=== PATIENT | male | born 1985 | race Caucasian/White ===

== ENCOUNTER → 2017-01-24 | Outpatient (CLI) | payer OTHER ==
[~2017-01-24] MED LIST: ATR25 PO; INSPMPRG; SERT-234 PO
[2017-01-24 16:29] LABS: ALB/GLOB RATIO 1.2 (0.9-2); ALKALINE PHOSPHATASE 89 U/L (45-117); ALT/SGPT 22 U/L (12-78); AST/SGOT 12 U/L (15-37); BLOOD UREA NITROGEN 18 mg/dl (7-18); BUN/CREATININE RATIO 14.1 (10-20); CALCIUM 8.6 mg/dl (8.5-10.1); CARBON DIOXIDE 30 mmol/L (21-32); CHLORIDE 102 mmol/L (98-107); CHOLESTEROL 116 mg/dl (0-200); CHOLESTEROL/HDL RATIO 1.8; CREATININE 1.28 mg/dl (0.60-1.40); GLUCOSE 368 mg/dl (70-99); HDL CHOLESTEROL 66 mg/dl; LDL CHOLESTEROL CALCULATED 5 mg/dl; POTASSIUM 4.2 mmol/L (3.5-5.1); SODIUM 139 mmol/L (136-145); THYROID STIMULATING HORMONE 0.301 uIu/ml (0.300-4.500); TRIGLYCERIDES 223 mg/dl (0-150); VERY LOW DENSITY LIPOPROT CALC 45 mg/dl
[2017-01-24 16:40] LABS: BETA-HYDROXYBUTYRATE 1.19 mg/dL (0.2-2.81)
[2017-01-24 17:08] LABS: RATIO 17.4 mcg/mg (0-30.0)
[2017-01-25 06:15] LABS: ESTIMATED AVERAGE GLUCOSE 192 mg/dl; HA1C FLAG Normal (Normal)
== END | disposition home or self-care (01) ==
LOC: C.LAB1850 14:44
PROVIDERS: ATTEND Nurse Practitioner Family
DX: E10.65 Type 1 diabetes mellitus with hyperglycemia (principal)

== ENCOUNTER → 2017-04-11 | Outpatient (CLI) | payer OTHER ==
--- NOTE | 2017-04-11 09:50 | DIAGNOSTIC IMAGING REPORT ---
CHEST 2 VIEWS ROUTINE CLINICAL HISTORY: COUGH COMPARISON STUDY: Chest radiograph June 15, 2011. FINDINGS: Lung volumes are normal. No pneumothorax or pleural effusion is present. There is no consolidation to suggest pneumonia. Pulmonary vascularity is normal. Cardiomediastinal silhouette is normal. IMPRESSION: No acute cardiopulmonary findings. Electronically signed by: Adrian Cheatham M.D. 04/11/2017 9:49 AM Dictated Date/Time: 04/11/2017 9:47 AM
== END | disposition home or self-care (01) ==
LOC: C.RADBC 09:38
PROVIDERS: ATTEND Nurse Practitioner Adult Health
DX: R05 Cough (principal)

== ENCOUNTER 2017-10-16 17:55 | Emergency (ER) | payer OTHER ==
[~2017-10-16] VITALS: Ht 170.2 cm; Wt 70.0 kg
[2017-10-16 17:57] VITALS: TEMP 36.6; Ht 170.2 cm; Wt 70.0 kg
[2017-10-16] MEDS ORDERED: ONDANSETRON INJ 2 MG/ML 2 ML VIAL IV STA (18:04)
[2017-10-16] MEDS ORDERED: SODIUM CHLORIDE 0.9% 1000ML 1,000 ML IV STA (18:04)
[2017-10-16] MEDS ORDERED: SODIUM CHLORIDE 0.9% 1000ML 2,000 ML IV STA (18:04)
--- NOTE | 2017-10-16 18:21 | EMERGENCY ROOM VISIT NOTE ---
History Report prepared by Pato: Humza Quintana Under the Supervision of: Dr. Vanita Thakkar M.D. First contact with patient: 18:03 Chief Complaint: OTHER COMPLAINT Stated Complaint: DIABETIC SHOCK History of Present Illness The patient is a 31 year old male who presents to the Emergency Room with complaints of high blood sugar. 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 He states he uses an insulin pump that he filled this morning. He states that he felt nausea this morning that is now resolved. He reports that around noon, he began urinating once per hour. He states that he also felt tired but otherwise mostly fine until 5 PM, when he began feeling like his blood sugar was high, experiencing pain and shortness of breath. He called his at this time. He states that he left his pump at work , and then when he checked his blood sugar, it was over 600. The patient states that he takes no medications other than insulin. Today he ate a protein bar, a piece of toast, a red bull, and coffee without sugar. He also notes that he drank 2 hard ciders last night. The patient states that this is the first time he has been in the hospital for his diabetes. Source of History: patient Onset: today, worsening at 5 PM Position: other (global) Symptom Intensity: blood sugar over 600 Timing: worsening (since 5 PM) Associated Symptoms: + SOB, + nausea (now resolved), + urinary symptoms ( frequency (once per hour)), + fatigue Review of Systems See HPI for pertinent positives & negatives. A total of 10 systems reviewed and were otherwise negative. Past Medical & Surgical Medical Problems: (1) Diabetes Family History Heart disease Hypertension Social History Smoking Status: Former Smoker Alcohol Use: occasionally Marital Status: Housing Status: lives with family Occupation Status: employed Current/Historical Medications Scheduled Insulin Aspart (novoLOG INSULIN PUMP ), 1 EA N/A UD Allergies Coded Allergies: Latex (Verified Allergy, Mild, RASH, 10/16/17) Physical Exam Vital Signs Date Time Temp Pulse Resp B/P (MAP) Pulse Ox O2 Delivery O2 Flow Rate FiO2 10/16/17 21:48 92 18 125/85 98 Room Air 10/16/17 19:06 93 20 134/77 97 Room Air 10/16/17 18:16 108 10/16/17 17:57 36.6 124 24 157/95 100 Room Air Physical Exam Vital signs reviewed. General: Hyperventilating and very anxious-appearing male. HEENT: No scleral icterus, PERRLA, neck supple. Atraumatic. Dry mucous membranes. Cardiovascular: Slightly tachycardic rate and regular rhythm, no extra sounds. Pulmonary: Clear to auscultation bilaterally, normal work of breathing. Abdomen: Soft, nontender, nondistended, positive bowel sounds. Musculoskeletal: Atraumatic, no peripheral edema. Neurologic: Patient awake alert and oriented x 3 Skin: Warm, dry, no rash Medical Decision & Procedures Laboratory Results 10/16/17 18:05 Red Blood Count 5.10, Mean Corpuscular Volume 83.5, Mean Corpuscular Hemoglobin 30.8, Mean Corpuscular Hemoglobin Concent 36.9, Mean Platelet Volume 10.4, Neutrophils (%) (Auto) 70.2, Lymphocytes (%) (Auto) 18.4, Monocytes (%) (Auto) 9.2, Eosinophils (%) (Auto) 1.1, Basophils (%) (Auto) 0.7, Neutrophils # (Auto) 7.84, Lymphocytes # (Auto) 2.06, Monocytes # (Auto) 1.03, Eosinophils # (Auto) 0.12, Basophils # (Auto) 0.08 10/16/17 18:05 Test 10/16/17 18:05 10/16/17 18:15 10/16/17 18:47 10/16/17 19:04 White Blood Count 11.17 K/uL (4.8-10.8) Red Blood Count 5.10 M/uL (4.7-6.1) Hemoglobin 15.7 g/dL (14.0-18.0) Hematocrit 42.6 % (42-52) Mean Corpuscular Volume 83.5 fL (80-100) Mean Corpuscular Hemoglobin 30.8 pg (25-34) Mean Corpuscular Hemoglobin Concent 36.9 g/dl (32-36) Platelet Count 261 K/uL (130-400) Mean Platelet Volume 10.4 fL (7.4-10.4) Neutrophils (%) (Auto) 70.2 % Lymphocytes (%) (Auto) 18.4 % Monocytes (%) (Auto) 9.2 % Eosinophils (%) (Auto) 1.1 % Basophils (%) (Auto) 0.7 % Neutrophils # (Auto) 7.84 K/uL (1.4-6.5) Lymphocytes # (Auto) 2.06 K/uL (1.2-3.4) Monocytes # (Auto) 1.03 K/uL (0.11-0.59) Eosinophils # (Auto) 0.12 K/uL (0-0.5) Basophils # (Auto) 0.08 K/uL (0-0.2) RDW Standard Deviation 37.0 fL (36.4-46.3) RDW Coefficient of Variation 12.2 % (11.5-14.5) Immature Granulocyte % (Auto) 0.4 % Immature Granulocyte # (Auto) 0.04 K/uL (0.00-0.02) Est Creatinine Clear Calc Drug Dose 55.1 ml/min Estimated GFR () 55.8 Estimated GFR (Non- 48.1 BUN/Creatinine Ratio 13.2 (10-20) Calcium Level 10.0 mg/dl (8.5-10.1) Magnesium Level 2.0 mg/dl (1.8-2.4) Total Bilirubin 1.8 mg/dl (0.2-1) Direct Bilirubin 0.4 mg/dl (0-0.2) Aspartate Amino Transf (AST/SGOT) 24 U/L (15-37) Alanine Aminotransferase (ALT/SGPT) 34 U/L (12-78) Alkaline Phosphatase 180 U/L (45-117) Total Protein 8.1 gm/dl (6.4-8.2) Albumin 4.9 gm/dl (3.4-5.0) Lipase 108 U/L (73-393) Beta-Hydroxybutyric Acid 21.85 mg/dL (0.2-2.81) Salicylates Level < 1.7 mg/dl (2.8-20) Acetaminophen Level < 2 ug/ml (10-30) Bedside Hemoglobin 16.0 g/dl (14.0-18.0) Bedside Hematocrit 47 % (42-52) Bedside Sodium 127 mEq/L (135-144) Bedside Potassium 4.1 mEq/L (3.3-5.0) Bedside Chloride 91 mEq/L (101-112) Bedside Total CO2 17 mEq/l (24-31) Anion Gap 24.0 mmol/L (16-25) Bedside Blood Urea Nitrogen 24 mg/dl (7-18) Bedside Creatinine 1.1 mg/dl (0.6-1.3) Bedside Glucose (other) > 700 mg/dl (70-99) Bedside Ionized Calcium (Emma) 1.04 mmol/l (1.12-1.32) Urine Color YELLOW Urine Appearance CLEAR (CLEAR) Urine pH 5.0 (4.5-7.5) Urine Specific Patriot 1.032 (1.000-1.030) Urine Protein NEG (NEG) Urine Glucose (UA) 3+ (NEG) Urine Ketones 2+ (NEG) Urine Occult Blood NEG (NEG) Urine Nitrite NEG (NEG) Urine Bilirubin NEG (NEG) Urine Urobilinogen NEG (NEG) Urine Leukocyte Esterase NEG (NEG) Urine Opiates Screen NEG (NEG) Urine Methadone, Qualitative NEG (NEG) Urine Barbiturates NEG (NEG) Urine Phencyclidine (PCP) Level NEG (NEG) Ur Amphetamine/Methamphetamine NEG (NEG) MDMA (Ecstasy) Screen NEG (NEG) Urine Benzodiazepines Screen NEG (NEG) Urine Cocaine Metabolite NEG (NEG) Urine Marijuana (THC) NEG (NEG) Arterial Blood pH 7.35 (7.35-7.45) Arterial Blood Partial Pressure CO2 33 mmHg (35-46) Arterial Blood Partial Pressure O2 109 mm/Hg (80-95) Arterial Blood HCO3 18 mmol/L (19-24) Arterial Blood Oxygen Saturation 97.9 % (90-95) Arterial Blood Base Excess -7.1 mEq/L (-9-1.8) Arterial Blood Gas Delivery ROOM AIR Hector Test POS (POS) Ethyl Alcohol mg/dL < 3.0 mg/dl (0-3) Test 10/16/17 21:55 Bedside Glucose 217 mg/dl (70-99) Laboratory results per my review. Medications Administered Medications (Trade) Dose Ordered Sig/Milagros Route Start Time Stop Time Status Last Admin Dose Admin Sodium Chloride 2,000 ml @ 999 mls/hr Q2H1M STAT IV 10/16/17 18:04 10/16/17 20:04 DC 10/16/17 18:04 999 MLS/HR Sodium Chloride 1,000 ml @ 200 mls/hr Q5H STAT IV 10/16/17 18:04 10/16/17 23:03 DC 10/16/17 19:15 200 MLS/HR Insulin Human Regular (novoLIN-R U-100 PER UNIT) 10 units NOW STAT IV 10/16/17 19:28 10/16/17 19:30 DC 10/16/17 20:03 10 UNITS Insulin Human Regular (novoLIN-R U-100 PER UNIT) 6 units NOW STAT IV 10/16/17 21:02 10/16/17 21:03 DC 10/16/17 21:21 6 UNITS ECG Per My Interpretation Indication: SOB/dyspnea, other (elevated blood sugar) Rate (beats per minute): 93 Rhythm: normal sinus Findings: other (possible left atrial enlargement. QTC 469) ED Course 180: Past medical records reviewed. The patient was evaluated in room C2A. A complete history and physical examination was performed. 1803: Ordered Zofran 4 mg IV, Sodium Chloride 1000 ml @ 200 mls/hr IV, Sodium Chloride 2000 ml @ 999 mls/hr IV 8: Ordered Insulin Human Regular 10 units IV 2101: Ordered Insulin Human Regular 6 units IV 0: Upon reevaluation, the patient appeared to have improvement of his symptoms. I discussed findings with him. He verbalized agreement of the treatment plan. He was discharged home. Medical Decision Differential diagnosis: noncompliant with insulin therapy, alcohol ingestion, dehydration, DKA, hyperglycemia, viral illness, pneumonia This patient was evaluated and appeared to be anxious but in no significant distress. IV access was obtained and laboratory work was drawn. Patient was found to be slightly tachycardic with stable vital signs. He was hydrated with 2 L of normal saline. Patient's glucose was initially greater than 600. Patient's laboratory work reveals a stable pH of 7.35 on ABG, somewhat depleted bicarb and an elevated hydroxybutyrate. Patient is found to be hyponatremic. Patient was given 10 units of IV regular insulin after adequate IV hydration. Repeat glucose after approximately 1 hour was significantly improved to 351. Patient was given an additional 6 units of IV regular insulin and IV fluids were continued. Repeat glucose was down to 215. Patient was given a snack of milk, crackers and peanut butter. His insulin pump continues to work properly. He states he will change his site and tubing upon his return home. I do feel that the patient's pump is likely working as he was not technically in a DKA. He did turn around quickly with IV hydration and glucose management. I suspect it was a combination of factors including intake of a sugary energy drink, alcohol and a lack of attention to his glucose. Patient's is responsible as his is also at the bedside. They have 2 young children and he prefers to be discharged. At this time I feel he is stable for continued at home treatment. 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 Medication Reconcilliation Current Medication List: was personally reviewed by me Blood Pressure Screening Patient's blood pressure: Elevated blood pressure Blood pressure disposition: Elevated BP felt to be situational Impression Primary Impression: Hyperglycemia due to type 1 diabetes mellitus Scribe Attestation The scribe's documentation has been prepared under my direction and personally reviewed by me in its entirety. I confirm that the note above accurately reflects all work, treatment, procedures, and medical decision making performed by me. Departure Information Dispostion Home / Self-Care Referrals Racheal Coley ,DonnellN.P. (PCP) Forms HOME CARE DOCUMENTATION FORM, IMPORTANT VISIT INFORMATION, WORK / SCHOOL INSTRUCTIONS Patient Instructions My [facility] Additional Instructions Diagnosis: Hyperglycemia Please drink plenty of clear fluids. Eat a balanced meal every 3-4 hours. Continue your insulin pump as directed by endocrinology. Please check your glucose frequently for the next 24-48 hours. Return to the emergency department immediately for worsening of symptoms or any medical concerns.
[2017-10-16 18:23] LABS: BASO % 0.7 %; BASO ABS # 0.08 K/uL (0-0.2); EOS % 1.1 %; EOS ABS # 0.12 K/uL (0-0.5); HEMATOCRIT 42.6 % (42-52); HEMOGLOBIN 15.7 g/dL (14.0-18.0); IG# 0.04 K/uL (0.00-0.02); LYMPH % 18.4 %; LYMPH ABS # 2.06 K/uL (1.2-3.4); MEAN CELL VOLUME 83.5 fL (80-100); MEAN CORPUSCULAR HEMOGLOBIN 30.8 pg (25-34); MEAN CORPUSCULAR HGB CONC 36.9 g/dl (32-36); MEAN PLATELET VOLUME 10.4 fL (7.4-10.4); MONO % 9.2 %; MONO ABS # 1.03 K/uL (0.11-0.59); NEUT % 70.2 %; NEUT ABS # 7.84 K/uL (1.4-6.5); PLATELET COUNT 261 K/uL (130-400); RED CELL DISTRIBUTION WIDTH CV 12.2 % (11.5-14.5); WHITE BLOOD COUNT 11.17 K/uL (4.8-10.8)
[2017-10-16 18:25] LABS: ISTAT CREATININE 1.1 mg/dl (0.6-1.3); ISTAT IONIZED CALCIUM 1.04 mmol/l (1.12-1.32); ISTAT POTASSIUM 4.1 mEq/L (3.3-5.0); ISTAT SODIUM 127 mEq/L (135-144)
[2017-10-16 18:46] LABS: ALBUMIN 4.9 gm/dl (3.4-5.0); CREATININE 1.85 mg/dl (0.60-1.40); TOTAL PROTEIN 8.1 gm/dl (6.4-8.2)
[2017-10-16] MEDS ORDERED: NovoLIN-R INSULIN PER UNIT CHARGE IV STA ×2 (19:28→21:02)
[2017-10-16] MEDS ORDERED: INSPMPNVLG (21:01)
[2017-10-16 21:48] VITALS: BP 125/85; PULSE 92; O2SAT 98
== END 2017-10-16 22:30 | disposition home or self-care (01) ==
LOC: C.EDB 17:57 → C.EDC 22:30
DX: E10.65 Type 1 diabetes mellitus with hyperglycemia (principal); E87.1 Hypo-osmolality and hyponatremia; Z96.41 Presence of insulin pump (external) (internal); Z82.49 Family history of ischemic heart disease and other diseases of the circulatory system; Z87.891 Personal history of nicotine dependence; Z79.4 Long term (current) use of insulin; Z91.040 Latex allergy status

== ENCOUNTER 2024-03-12 11:27 | Observation (INO) ==
--- NOTE | 2024-03-12 11:40 | Emergency Department Note ---
Impression & Plan Acute hyperglycemia ADMIT ED Provider Note HPI: History obtained from patient. The patient is a 38-year-old gentleman with history of insulin-dependent diabetes, who presents the emergency department with a chief complaint of hyperglycemia. Patient states he took his blood sugar last night and it was elevated greater than 600, patient is currently on insulin pump, he states that he adjusted the site and then went back to bed but continued to get alarms that his blood sugar was high. Patient attempted to go to work this morning and had to further reading states that his blood sugar was high and therefore came to the ER to be assessed. On arrival here to the ED the patient is mildly tachycardic, he complains of some nausea, he otherwise is hemodynamically stable and saturating well on room air on arrival. ROS: - Per HPI Differential Diagnosis: Diabetic ketoacidosis, hyperglycemia, viral gastroenteritis, acute dehydration/acute kidney injury, amongst other potential pathologies. *Outpatient medications and allergy history reviewed. 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 Lab work shows no leukocytosis, hemoglobin is normal, platelet count is normal, venous blood gas shows a normal pH, CMP shows normal serum bicarbonate level, anion gap is slightly elevated at 14, glucose is 586 on CMP. Patient was given IV fluids, his insulin pump was turned off. Patient was placed on insulin drip, he otherwise was hemodynamically stable on my reassessment. Unclear why the patient's insulin pump was not functioning appropriately but I suspect this is the source of his hyperglycemia. Given his lab findings, patient was placed on insulin drip and placed for admission. I discussed the patient's presentation with the on-call midlevel provider for Raul Pace and the patient was placed for admission in stable condition. Consultants/Discussions held with other healthcare providers: -Hospitalist, Dr. Trevizo Disposition discussion held by myself with: -Patient * CRITICAL CARE TIME: (33) minutes -Stabilization of patient with hyperglycemia requiring initiation of insulin drip for blood sugar greater than 500, time spent at the bedside, interpretation of lab work and diagnostic studies, discussion with other healthcare providers and arrangement of admission. Diagnosis: 1. Hyperglycemia, acute Disposition: Admission Mitch Gardner DO Emergency Medicine Past Med/Surg History Problem List (Updated 03/12/24 @ 15:12 by Mitch Gardner DO) Acute hyperglycemia (Acute) Hyperglycemia due to type 1 diabetes mellitus Vitamin D insufficiency Frequent nosebleeds Productive cough Unwanted fertility Diabetic nephropathy associated with type 1 diabetes mellitus Encounter for vasectomy counseling Avulsion, finger tip (Acute) Shingles (Acute) Type 1 diabetes mellitus, uncontrolled Elevated blood pressure reading Positive for macroalbuminuria Nephropathy Type 1 diabetes mellitus with retinopathy Hypertension Polyarthralgia Uncontrolled hypertension Chronic kidney disease, stage I Hypertension Medical History Chronic kidney disease, stage I Hypertension Type 1 diabetes mellitus with retinopathy Positive for macroalbuminuria Family History Aunt Breast cancer Grandmother (Maternal) No problems noted. Grandmother Breast cancer Grandfather Myocardial infarction Denies family history of Ovarian cancer Prostate cancer Colorectal cancer Social History Smoking Status: Unknown if ever smoked Tobacco Type: Cigarettes Age Started Using Tobacco: 19; Age Quit Using Tobacco: 30; packs per day: 2; Second Hand Exposure: No; Do You Dip or Chew Tobacco: No; Hx Alcohol Use: Yes Alcohol type: wine Alcohol Intake Frequency: 2-4 x/Month Hx Substance Use: No Preferred Language: Urdu Visual Impairment: No Limitations Hearing Ability: Normal marital status: Current Living Situation: Spouse and Family current occupational status: employed current occupation: [employer] Feels Safe at Home: Yes Childhood Exposure to Second-Hand Smoke: No Diet: other and regular Diet Comment: no red meat or pork Dental Care, Regularly: Yes Physical Activity Frequency: 5-6 Times per Week Seatbelt Use: always Sunscreen Use: Yes Allergies Allergies Allergy/AdvReac Type Severity Reaction Status Date / Time latex Allergy Mild RASH Verified 03/12/24 13:40 Home Meds Home Medications Medication Instructions Recorded Confirmed subcutaneous insulin pump (MiniMed 10/15/20 02/20/24 770G Insulin Pump) acetaminophen 650 mg 2,600 mg PO DAILY PRN Pain 09/14/22 03/12/24 tablet,extended release (Tylenol 8 Hour) ketoconazole 2 % shampoo 1 applic topical 2XWK 03/12/24 03/12/24 Previous Rx's Medication Instructions Recorded acetone (urine) test (Ketone Urine #100 ea 12/29/21 Test strips) glucagon 3 mg/actuation nasal spray 3 mg intranasal ONCE PRN 12/29/21 hypoglycemia #2 ea albuterol sulfate 90 mcg/actuation 2 inh inhalation QID PRN shortness 11/22/22 aerosol inhaler of breath or wheezing #20.1 grams Humalog U-100 Insulin 100 unit/mL See Rx Instructions subcut DAILY 06/15/23 subcutaneous solution (insulin 90 days #70 mL lispro) insulin syringe-needle U-100 1 mL #100 ea 08/22/23 31 gauge x 5/16" (BD Insulin Syringe Ultra-Fine) blood sugar diagnostic (OneTouch #500 ea 12/05/23 Verio test strips) losartan 50 mg tablet 50 mg PO BID #180 tabs 12/07/23 betamethasone dipropionate 0.05 % 1 applic topical DAILY #60 mL 02/20/24 lotion Results & Data (ED) Vital Signs Vital Signs - 24 hr 03/12/24 11:35 03/12/24 11:49 03/12/24 12:21 Temperature 36.6 C Temperature Source Oral Pulse Rate 107 H 97 H 95 H Pulse Rhythm Regular Regular Pulse Strength Normal Respiratory Rate 14 17 Respiratory Effort / Characteristics Non-Labored Spontaneous Respiratory Depth Normal Respiratory Pattern Regular Blood Pressure 157/113 H Blood Pressure Mean 127 Blood Pressure Position Lying Pulse Oximetry 97 99 Oxygen Delivery Method Room Air Room Air Sepsis Recent Fever Within 48 Hours No Sepsis New/Unexplained Change in Mental Status No Sepsis Action Taken by Nursing No Action Required Laboratory Data 03/12/24 11:40 12/31/24 11:40 Lab Results 03/12/24 03/12/24 03/12/24 Range/Units 11:32 11:40 13:13 WBC 8.97 (4.8-10.8) K/ul RBC 5.04 (4.70-6.10) M/uL Hgb 15.2 (14.0-18.0) g/dl Hct 41.3 L (42.0-52.0) % MCV 81.9 (80.0-100.0) fL MCH 30.2 (25.0-34.0) pg MCHC 36.8 H (32.0-36.0) g/dL RDW Std Deviation 35.2 L (36.4-46.3) fL RDW Coeff of Pao 11.8 (11.5-14.5) % Plt Count 233 (130-400) K/uL MPV 10.1 (9.4-12.4) fL Immature Gran % (Auto) 0.2 % Neut % (Auto) 83.6 % Lymph % (Auto) 8.4 % Mariposa % (Auto) 5.2 % Eos % (Auto) 2.0 % Baso % (Auto) 0.6 % Neut # (Auto) 7.50 H (1.40-6.50) K/uL Lymph # (Auto) 0.75 L (1.20-3.40) K/uL Mariposa # (Auto) 0.47 (0.11-0.59) K/uL Eos # (Auto) 0.18 (0.00-0.50) K/uL Baso # (Auto) 0.05 (0.00-0.20) K/uL Immature Gran # (Auto) 0.02 (0.01-0.20) K/uL VBG pH 7.38 (7.36-7.41) VBG pCO2 41 (38-50) mmHg VBG pO2 47 mmHg VBG HCO3 24 mmol/L VBG O2 Saturation 79.6 % VBG Base Excess -0.8 mEq/L Sodium 131 L (136-145) mmol/L Potassium 4.3 (3.5-5.1) mmol/L Chloride 94 L (98-107) mmol/L Carbon Dioxide 23 (21-32) mmol/L Anion Gap 14 H (3-11) BUN 23 (6-23) mg/dl Creatinine 1.21 (0.6-1.4) mg/dl Est Cr Clr Drug Dosing 78.9 ml/min eGFR 79.58 BUN/Creatinine Ratio 19.0 (10-20) Glucose 586 H* (70-99(Fasting)) mg/dl POC Glucose 491 H* 412 H* (70-99) mg/dl Calcium 9.6 (8.6-10.3) mg/dl Phosphorus 3.3 (2.5-4.9) mg/dl Magnesium 1.8 (1.7-2.4) mg/dl Total Bilirubin 1.2 H (0.2-1.0) mg/dl AST 17 (13-39) U/L ALT 18 (7-52) U/L Alkaline Phosphatase 110 H (34-104) U/L Total Protein 7.0 (6.0-8.3) gm/dl Albumin 4.3 (3.4-5.0) gm/dl Globulin 2.7 (2.5-4.0) gm/dl Albumin/Globulin Ratio 1.6 (0.9-2) Administered Medications Insulin Human Regular 250 (units/ Sodium Chloride) 250 mls @ 2 mls/hr IV .Q24H [facility]; Protocol Stop: 04/11/24 12:59 Last Titration: 03/12/24 14:26 Dose: 2 unit/hr, 2 mls/hr Documented By: LAY Co-signed By: LINDA Admin: 03/12/24 13:17 Dose: 1.7 unit/hr, 1.7 mls/hr Documented By: LAY Co-signed By: LINDA Discontinued Medications Acetaminophen (Acetaminophen 325 Mg Tab) 650 mg PO NOW STA Stop: 03/12/24 13:37 Last Admin: 03/12/24 13:53 Dose: 650 mg Documented By: LINDA Sodium Chloride (Nss) 1,000 mls @ 999 mls/hr IV .Q1H1M ONE Stop: 03/12/24 12:38 Last Infusion: 03/12/24 12:52 Dose: Infused Documented By: Admin: 03/12/24 11:50 Dose: 999 mls/hr Documented By: LINDA Losartan Potassium (Losartan Potassium 50 Mg Tab) 50 mg PO ONE ONE Stop: 03/12/24 13:44 Last Admin: 03/12/24 14:28 Dose: 50 mg Documented By: LINDA Castellano (Stat Iv Infusion Titration Per Protocol) 1 each N/A NOW STA Stop: 03/12/24 12:49 Last Admin: 03/12/24 13:22 Dose: Not Given Documented By: ILNDA Castellano (Moderate Stress Level ) 1 each N/A ONE ONE Stop: 03/12/24 12:49 Last Admin: 03/12/24 13:22 Dose: Not Given Documented By: LINDA Castellano (Insulin Protocol Goal Range ) 1 each N/A ONE ONE Stop: 03/12/24 12:49 Last Admin: 03/12/24 13:22 Dose: Not Given Documented By: LINDA Discharge Plan Visit Data Chief Complaint: Hyperglycemia Stated Complaint: HYPERGLYCEMIA ED Provider: Mitch Gardner Discharge Problem: Acute hyperglycemia Patient Disposition: Admitted As Inpatient Discharge Instructions Interventions: ED Discharge Assessment Last Done: 03/12/24 14:33
[2024-03-12] MEDS: SODIUM CHLORIDE 0.9% 1,000 ML IV ONE (11:50)
[2024-03-12 12:03] LABS: Base Excess VBG -0.8 mEq/L; HCO3 VBG 24 mmol/L; Oxygen Saturation VBG 79.6 %; PCO2 VBG 41 mmHg (38-50); PO2 VBG 47 mmHg; pH VBG 7.38 (7.36-7.41)
[2024-03-12 12:12] LABS: Basophils # (auto) 0.05 K/uL (0.00-0.20); Basophils % (auto) 0.6 %; Eosinophils # (auto) 0.18 K/uL (0.00-0.50); Hematocrit (blood only) 41.3 % (42.0-52.0); Hemoglobin 15.2 g/dl (14.0-18.0); Immature Granulocytes # (auto) 0.02 K/uL (0.01-0.20); Immature Granulocytes % (auto) 0.2 %; Lymphocytes # (auto) 0.75 K/uL (1.20-3.40); Lymphocytes % (auto) 8.4 %; Mean Corpuscular Hemoglobin 30.2 pg (25.0-34.0); Mean Corpuscular Hgb Conc 36.8 g/dL (32.0-36.0); Mean Corpuscular Volume 81.9 fL (80.0-100.0); Mean Platelet Volume 10.1 fL (9.4-12.4); Monocytes # (auto) 0.47 K/uL (0.11-0.59); Monocytes % (auto) 5.2 %; Neutrophils % (auto) 83.6 %; Platelet Count 233 K/uL (130-400); RDW Coefficient of Variation 11.8 % (11.5-14.5); RDW Standard Deviation 35.2 fL (36.4-46.3); Red Blood Count 5.04 M/uL (4.70-6.10); White Blood Count 8.97 K/ul (4.8-10.8)
[2024-03-12 12:41] LABS: Albumin Globulin Ratio 1.6 (0.9-2); Albumin Level 4.3 gm/dl (3.4-5.0); Bilirubin,Total 1.2 mg/dl (0.2-1.0); Calcium 9.6 mg/dl (8.6-10.3); Creatinine Clr Calc Pharmacy 78.9 ml/min; Globulin 2.7 gm/dl (2.5-4.0); Potassium 4.3 mmol/L (3.5-5.1)
[2024-03-12] MEDS ORDERED: PHARMACY GLYCEMIC MGMT CONSULT PRN (12:48)
[2024-03-12] MEDS ORDERED: INSULIN REGULAR 250 UNITS in SODIUM CHLORIDE 0.9% 247.5 ML IV SCH (13:00)
--- NOTE | 2024-03-12 13:12 | History & Physical Report ---
Date of Service March 12, 2024 Assessment & Plan (1) Hyperglycemia due to type 1 diabetes mellitus: Plan: uses insulin pump at home Glucose 586 -> 491 pseudohyponatremia, corrected NA 143 potassium stable on admission, 4.3 -> anticipate to decrease with IV insulin use; maintenance NSS with 20 mEq K+ ordered not in DKA on admission - anion gap mildly elevated at 14 - Bicarb WNL - VBG WNL; 7.38/41/24 Insulin gtt per protocol BMP, magnesium, VBG, phosphorous Q6H x 3 overnight pharmacy glycemic consult With low anion gap, asymptomatic - advance to type I DM diet (2) Polyarthralgia: Plan: chronic extremity pain, specifically bilateral knees Acutely worsened with hyperglycemia Tylenol prn Voltaren gels QID for bilateral knees Ice prn (3) Hypertension: Plan: Mildly elevated on admission, did not take a.m. meds AM losartan ordered Continue losartan 50 Mg BID Plan Chronic stable diagnoses: frequent nosebleeds H&H stable Chronic cough/asthma continue inhaler as needed VTE ppx: SCDs, ambulate; likely to DC home 03/13, if prolonged stay can add chemical PPx Diet: T1DM Dispo: PCU with insulin drip - anticipate dc home 03/13 with insulin pump correctly functioning Admission and Anticipated Discharge Date Admission Date: 03/12/24 History of Present Illness Chief Complaint: hyperglycemia Primary Care Provider: Andrea Ray DO Patient is a 38-year-old with past medical history of type 2 diabetes, asthma, hypertension. He presents today after his insulin pain seem to malfunction last night. He stated that he had a glucose of greater than 400 last evening and felt like his insulin pump was not working correctly. He changed to the insulin pump site at midnight and then again at 5 AM. The alarms were going off on the pump all night stating he was hyperglycemic. He came into the ER today and was found to have a glucose of 586, now down to 491. He was started on an insulin drip after the ER physician talked with pharmacy. he stated that he has chronic pain in his extremities specifically in his bilateral knee knees, this is acutely exacerbated today and typically flares up whenever he is hyperglycemic. He stated that he was nauseous this morning but it has subsided. He also endorses frequent nosebleeds, chronic. He has had an increase in urine output since last night. Patient denies fever, chills, headache, dizziness, lightheadedness, vision changes, rhinorrhea, sore throat, cough, sputum production, dyspnea, dyspnea on exertion, chest pain, abdominal pain, current nausea, vomiting, dysuria, numbness, tingling. He has had DKA in the past approximately 6 to 7 years ago. He has had the same insulin pump for approximately 5 years, [employer], software update 4. He has never had an issue with his insulin pump before. He does not use nicotine and socially drinks alcohol. He denies past history of CVA or VTE. He did have a pneumothorax in 2010. He did not take his home medications this a.m. including his losartan. He wishes to be full code at this time. His was updated at bedside. Allergies Allergy/AdvReac Type Severity Reaction Status Date / Time latex Allergy Mild RASH Verified 03/12/24 13:40 Home Medications Medication Instructions Recorded Confirmed Type subcutaneous insulin pump (MiniMed 10/15/20 02/20/24 History 770G Insulin Pump) acetone (urine) test (Ketone Urine #100 ea 12/29/21 02/20/24 Rx Test strips) glucagon 3 mg/actuation nasal spray 3 mg intranasal ONCE PRN 12/29/21 03/12/24 Rx hypoglycemia #2 ea acetaminophen 650 mg 2,600 mg PO DAILY PRN Pain 09/14/22 03/12/24 History tablet,extended release (Tylenol 8 Hour) albuterol sulfate 90 mcg/actuation 2 inh inhalation QID PRN shortness 11/22/22 03/12/24 Rx aerosol inhaler of breath or wheezing #20.1 grams Humalog U-100 Insulin 100 unit/mL See Rx Instructions subcut DAILY 06/15/23 03/12/24 Rx subcutaneous solution (insulin 90 days #70 mL lispro) insulin syringe-needle U-100 1 mL #100 ea 08/22/23 02/20/24 Rx 31 gauge x 5/16" (BD Insulin Syringe Ultra-Fine) blood sugar diagnostic (OneTouch #500 ea 12/05/23 02/20/24 Rx Verio test strips) losartan 50 mg tablet 50 mg PO BID #180 tabs 12/07/23 03/12/24 Rx betamethasone dipropionate 0.05 % 1 applic topical DAILY #60 mL 02/20/24 03/12/24 Rx lotion ketoconazole 2 % shampoo 1 applic topical 2XWK 03/12/24 03/12/24 History Past Med/Surg History Problem List (Updated 03/12/24 @ 15:12 by Mitch Gardner DO) Acute hyperglycemia (Acute) Hyperglycemia due to type 1 diabetes mellitus Vitamin D insufficiency Frequent nosebleeds Productive cough Unwanted fertility Diabetic nephropathy associated with type 1 diabetes mellitus Encounter for vasectomy counseling Avulsion, finger tip (Acute) Shingles (Acute) Type 1 diabetes mellitus, uncontrolled Elevated blood pressure reading Positive for macroalbuminuria Nephropathy Type 1 diabetes mellitus with retinopathy Hypertension Polyarthralgia Uncontrolled hypertension Chronic kidney disease, stage I Hypertension Medical History Chronic kidney disease, stage I Hypertension Type 1 diabetes mellitus with retinopathy Positive for macroalbuminuria Family History Aunt Breast cancer Grandmother (Maternal) No problems noted. Grandmother Breast cancer Grandfather Myocardial infarction Denies family history of Ovarian cancer Prostate cancer Colorectal cancer Social History Smoking Status: Former smoker Tobacco Type: Cigarettes Age Started Using Tobacco: 19; Age Quit Using Tobacco: 30; packs per day: 2; Second Hand Exposure: No; Do You Dip or Chew Tobacco: No; Tobacco Cessation Education Requested by Patient: No Hx Alcohol Use: Yes Alcohol type: wine Alcohol Intake Frequency: 2-4 x/Month Hx Substance Use: Yes Last Used Substance: Days (ago) Last Used Substance Other:: 03/11/24 Substance Use Type Other:: medical marijuana card Preferred Language: [place] Communication Ability: Effective Visual Impairment: No Limitations Hearing Ability: Normal Director Of Compensation Required: No Beliefs That Will Affect Care: None marital status: Current Living Situation: Spouse and Family current occupational status: employed current occupation: [employer] Other Information That Helps Us Care for You: No Feels Safe at Home: Yes Safety Concerns: Feels Safe At This Time Childhood Exposure to Second-Hand Smoke: No Diet: other and regular Diet Comment: no red meat or pork Dental Care, Regularly: Yes Physical Activity Frequency: 5-6 Times per Week Seatbelt Use: always Sunscreen Use: Yes Assistive Devices: Glasses Review of Systems Review of Systems: see HPI Physical Exam Physical Exam: The patient is awake, alert and oriented 3, well developed and well nourished, normocephalic and atraumatic, in no acute distress. Non-toxic appearing. HEENT- EOMI, mucous membranes moist. Hearing grossly intact. Heart-normal S1 and S2. No murmurs, rubs or gallops. Lungs-clear bilaterally, no respiratory distress, no accessory muscle use. Abdomen-normal bowel sounds and soft. No ascites noted. Non-tender. Extremities- no clubbing, cyanosis, or edema. Rheumatologic-normal range of motion. Psychiatric-normal affect. Results & Data Results & Data Vital Signs (Past 12 Hours) Vital Signs Temp Pulse Resp BP Pulse Ox O2 Del Method 03/12/24 12:21 95 H 03/12/24 11:49 97 H 17 99 Room Air 03/12/24 11:35 36.6 C 107 H 14 157/113 H 97 Room Air Laboratory Results Reviewed CBC, VBG, CMP Medications Administered ED: started insulin drip, 1L NSS ECG Additional Comments: ordered Code Status & VTE Plan Code Status full code VTE Prophylaxis Plan VTE Prophylaxis will be ordered: Yes Supervising Physician Co-Signing Physician Notes Attending Attestation & Admit Note: Pt seen/examined, chart reviewed, care plan d/w ROMA Cid. I agree w/ the jacob components of her documentation. 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 He reports feeling physically well yesterday and in fact his sugar was low around dinner-time last night. Current insulin cartridge is 2-3 days old. Reports no prior issues with his actual pump. Denies any recent illness or any change in his health status. No recent change in his chronic meds. Denies any new OTC meds. Overnight had nausea and "didn't feel well" but these symptoms have resolved. Was able to eat dinner this evening w/o difficulty. PMH/PSH/allergies/meds/sochx/famhx - reviewed VSS, afebrile gen - NAD, looks well mouth - MMM, no thrush neck - no JVD heart - RRR, s1 s2, no murmur lungs - CTA b/l abd - soft NT ND BS+; no HSM ext - no edema, pulses 2+ b/l skin - no rash musculo - no joint synovitis either knee labs noted EKG - NSR, no ST changes A/P: 1. acute hyperglycemia in chronically uncontrolled T1DM (all previous a1c's including most recent in July 2023 all high) 2. proteinuria - 2nd diabetic nephropathy 3. h/o seronegative inflammatory arthropathy 4. mild DKA it is unclear what led to his acute hyperglycemia and mild DKA he is compliant with his insulin pump there does not appear to be any pump failure no obvious infectious process cont insulin drip overnight with serial labs for #1/#4 check a1c am check lyme am check COVID/flu/RSV swab to be complete can likely transition back to his pump in the am tomorrow Gualberto Turner MD PG Care Time/CCT Total # of Minutes Spent Total Time Spent with Patient: Total time spent is greater than 50% in coordination of care (as documented) at patient's floor/unit and/or counseling patient: Coding Level of Care Code 34919 INT INP/OBS CARE 3/75MIN Diagnoses Hyperglycemia due to type 1 diabetes mellitus E10.65 Polyarthralgia M25.50 Hypertension I10
[2024-03-12] MEDS: INSULIN REGULAR 250 UNITS in SODIUM CHLORIDE 0.9% 247.5 ML IV SCH (13:17)
[2024-03-12] MEDS: INSULIN PROTOCOL GOAL RANGE ONE (13:22)
[2024-03-12] MEDS: MODERATE STRESS LEVEL ONE (13:22)
[2024-03-12] MEDS: STAT IV Infusion **Titration per Protocol STA (13:22)
[2024-03-12] MEDS: ACETAMINOPHEN 325 MG TAB PO STA (13:53)
[2024-03-12] MEDS: LOSARTAN POTASSIUM 50 MG TAB PO ONE (14:28)
[2024-03-12 14:31] LABS: Magnesium 1.8 mg/dl (1.7-2.4); Phosphorus 3.3 mg/dl (2.5-4.9)
[2024-03-12] MEDS ORDERED: ONDANSETRON INJ 2 MG/ML 2 ML VIAL IV PRN (14:33)
[2024-03-12] MEDS ORDERED: ALBUTEROL HFA 8 GM INHALER INH PRN (14:33)
[2024-03-12] MEDS: NSS + 20MEQ KCL 20 MEQ/1,000 ML BAG IV SCH (15:40)
[2024-03-12] MEDS: DICLOFENAC SOD 1% GEL 100 GM TUBE EXT SCH (15:41)
[2024-03-12] MEDS ORDERED: DEXTROSE 50% 50 ML SYRINGE IV PRN (15:45)
[2024-03-12] MEDS ORDERED: GLUCAGON FOR INJ 1 MG VIAL SQ PRN (15:45)
[2024-03-12] MEDS ORDERED: GLUCOSE 40% GEL 15 GM TUBE PO PRN (15:45)
[2024-03-12] MEDS ORDERED: GLUCOSE 10 TAB/TUBE PO PRN (15:45)
[2024-03-12] MEDS ORDERED: CARBOHYDRATES FOR HYPOGLYCEMIA PO PRN (15:45)
[2024-03-12] MEDS ORDERED: INSULIN ASPART PER UNIT CHARGE SC SCH (16:30)
--- OUTSIDE RECORDS SUMMARY | 2024-03-12 16:30 | External Medical Summary | Summary of Care ---
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 60 Cap 5 1 Active Additional Information Patient not taking.Reported on 02/22/2024 Accu-Chek Guide In Vitro Strip TEST BLOOD SUGAR 4 TIMES A DAY 2 Active Baqsimi Two Pack 3 MG/DOSE Nasal Powder SPRAY 1 SPRAY INTRANASALLY ONCE NEEDED FOR HYPOGLYCEMIA. 2 Active Ketostix In Vitro Strip Use as directed. 2 Active Acetaminophen ER 650 MG Oral Tablet Extended Release (Tylenol 8 Hour) Take 2 Tablets by mouth in the morning and 2 Tablets in the evening. As needed. Active Hydroxychloroqui ne Sulfate 200 MG Oral Tablet (Plaquenil) TAKE ONE AND ONE-HALF TABLETS BEFORE BEDTIME 135 Tablet 3 Active Additional Information Patient not taking.Reported on 02/22/2024 Losartan Potassium 50 MG Oral Tablet (Cozaar) 1 Tablet in the morning and 1 Tablet before bedtime. 4 Active Ketoconazole 2 % External Shampoo (Nizoral) Apply topically to affected area every 3 days. Active Betamethasone Dipropionate Aug 0.05 % External Lotion (Diprolene AF) Apply topically to affected area. 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 (HCC) 500 mg IV ONCE 02/22/2024 02/22/2024 Ended documented as of this encounter (statuses as of 02/22/2024) Active Problems Problem Noted Date Diagnosed Date Diabetes mellitus without complication 3 documented as of this encounter (statuses as of 02/22/2024) Immunizations Name Administration Dates Next Due COVID-19 mRNA, LNP-s, No Pre serve, 2-Dose Series (Moderna) 05/24/2020,04/26/2020 DTP Vaccine 08/09/1989, 9,04/15/1988, 988 DTaP Dipth/Tet/Acell Pertussis (Infanrix), Peds 08/03/1992 H1N1 2009 Influenza, IM 02/01/2009 Influenza, Whole Virus 01/26/2017,11/25/2015 MMR - Measles/Mumps/Rubella Vaccine 08/03/1992,0 08/09/1989 OPV - Polio Virus Vaccine (Oral) 993,08/09/1989,04/15/1988, 988 documented as of this encounter Social History Tobacco Use Types Packs/Day Years Used Date Smoking Tobacco: Former Cigarettes 2 12 0 06/03/1995 - 06/03/2007 Smokeless Tobacco: Never Tobacco Cessation:Counseling Given: Not Answered Alcohol Use Standard Drinks/Week Comments Yes 5 (1 standard drink = 0.6 oz pur e alcohol) Sex and Gender Information Value Date Recorded Sex Assigned at Not on file Legal Sex Male 6:52 AM EST Gender Identity Not on file Sexual Orientation Not on file documented as of this encounter Last Filed Vital Signs Vital Sign Reading Time Taken Comments Blood Pressure 167/82 02/22/2024 10:12 AM EST Pulse 81 02/22/2024 10:12 AM EST Temperature - - Respiratory Rate - - Oxygen Saturation - - Inhaled Oxygen Concentration - - Weight - - Height - - Body Mass Index - - documented in this encounter Progress Notes * Osman Rosales, DO - 02/22/2024 9:30 AM EST [facility] [place] Nursing notes reviewed. Eye vitals reviewed. Mood and Affect: normal HPI: Julio Tolentino is a 38 year old male who presents for evaluation of DR CC: floaters Vision: unchanged Location (of CC): OS Quality/Severity: moderate Duration: weeks-months Timing: gradual Context: nonspecific Associated Signs/Symptoms: none Modifying Factors: none No other eye complaints. Denies significant pain. Base Eye Exam Visual Acuity (Snellen - Linear) Right Left Dist cc 20/15 -2 20/15 -2 Tonometry (Tonopen, 9:52 AM) Right Left Pressure 17 10 Pupils Dark Light Shape React APD Right 3 2 Round Brisk None Left 3 2 Round Brisk None Visual [place] (Counting fingers) Right Left Full Full Extraocular Movement Right Left Full, Ortho Full, Ortho Neuro/Psych Oriented x3: Yes Dilation Both eyes: 0.5% Proparacaine @ 9:52 AM Dilation #2 Both eyes: 1.0% Mydriacyl, 2.5% Phenylephrine @ 9:52 AM Dilation #3 Both eyes: 1.0% Mydriacyl, 2.5% Phenylephrine @ 9:55 AM Dilation Comments Patient cautioned that effects of dilation may last 2-7 hours dependant upon individual reaction. It was discussed that driving while dilated is not recommended. EXTERNAL: The ocular adnexae are unremarkable. SLE: Lids/Lashes: wnl OU Conjunctiva/Sclera: quiet OU Cornea: clear OU Anterior Chamber: deep and quiet OU Iris: normal OU; no NVI OU Lens: clear OU Dilated fundus exam OD: vitreous: clear optic nerve: 0.3, no edema/pallor/NVD macula: wader boot top assembler vessels: wnl periphery: wader boot top assembler, scattered NVE/TERA, no RT/RD Dilated fundus exam OS: vitreous: trace VH optic nerve: 0.3, no edema/pallor/NVD macula: wader boot top assembler vessels: wnl periphery: wader boot top assembler, scattered NVE/TERA, NVE IN w/ small VH, no RT/RD OCT Interpretation: OD: no irf/srf, no pvd OS: no irf/srf, no pvd Fluorescein Interpretation: 02/22/2024 OD: diffuse peripheral capillary shutdown w/ scattered NV OS: diffuse peripheral capillary shutdown w/ scattered NV A/P: 1. Proliferative Diabetic Retinopathy OU -since age 15 -medtronic pump -BS not optimal, A1C >9 -small VH OS -start anti-VEFG OS +PRP; then start OD -recommend HgbA1C <7, BP and lipid control. MDM Level: HIGH due to high risk of vision loss w/o intervention. Follow Up: Return for w/in next 4 weeks for Avastin OS. | For: w/in next 4 weeks for Avastin OS Osman Rosales DO CC: Barak Marcus CC: PCP: Andrea Ray DO documented in this encounter Nursing Notes * Audrey Garcia RN - 02/22/2024 11:25 AM EST FA done both eyes. FA vitals-BP 138/90 pulse 76. IV 23 gauge butterfly inserted in left anticubital. Fluorescein dye 5ml injected and flushed with NSS. Patient tolerance: Well tolerated. IV site: discontinued.. Discharge instructions given. * Amara Gant LPN - 02/22/2024 9:41 AM EST Julio Tolentino is a 38 year old year old male referred by Dr. Barak Marcus to evaluate for possible diabetic stage 3 retinopathy and floater in left eye. Patient's name preference, "Julio"'. Patient currently states "I was told that I have diabetic retinopathy and has shown more over the last 2 years and should see an ged tutor to get a better look" Have you ever had any major surgery of serious injury of or around the eyes- no Are you diabetic? Yes. Do you check your blood sugars daily? NO. Last Hemoglobin A1C: Lab Results Component Value Date/Time HGBA1C 10.1 (A) 05/13/2021 12:00 AM HGBA1C 9.5 (H) 10/27/2017 03:34 PM FAMILY HISTORY: Family History Problem Relation Name Age of Onset Hypertension Father Thyroid Disorder Sister Cancer Aunt (Unspecified) Cancer Grandmother (Maternal) Hypertension Grandfather (Maternal) Cancer Grandmother (Paternal) SOCIAL HISTORY: Social History Tobacco Use Smoking status: Former Current packs/day: 0.00 Average packs/day: 2.0 packs/day for 12.0 years (24.0 ttl pk-yrs) Types: Cigarettes Start date: 06/03/1995 Quit date: 06/03/2007 Years since quittin.7 Smokeless tobacco: Never Vaping Use Vaping status: Former Substance Use Topics Alcohol use: Yes Alcohol/week: 5.0 standard drinks of alcohol Types: 5 5 oz of wine per week Drug use: Not Currently PMH: Past Medical History: Diagnosis Date Diabetes type 1, uncontrolled Macroalbuminuric diabetic nephropathy (HCC) Primary hypertension 2019 Patient Active Problem List Diagnosis Diabetes mellitus without complication (HCC) History obtained from: Patient Do you drive? yes OCT and fundus image(s) of both eyes acquired and filed/scanned into chart. 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 (HCC) Ordered: 02/22/2024 RETINA SCAN DIAGNOSTIC IMAGE, POSTERIOR Procedures Routine 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 (HCC) Ordered: 02/22/2024 FLUORESCEIN ANGIOGRAPHY MULTIFRAME Procedures Routine 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 (HCC) Ordered: 02/22/2024 Health Maintenance Due Date Last Done Comments Pneumococcal Vaccine: Pediatrics (0 to 5 Years) and At-Risk Patients (6 to 64 Years) (1 of 2 - PCV) 12/02/1993 DTap/Tdap Vaccines (6 - Tdap) 12/02/1998 08/03/1992, 08/09/1989, 06/01/1988, Additional history exists Depression Screening 1999 HIV Screening 12/02/2002 Diabetic Eye Exam 12/02/2005 Diabetic Foot Exam 12/02/2005 Hepatitis C Screening 12/02/2005 Hepatitis B Vaccine (1 of 3 - 19+ 3-dose series) 12/02/2006 Albumin/Creatinine Ratio 10/27/2018 10/27/2017 COVID-19 Vaccine (3 - Moderna risk series) 06/21/2020 05/24/2020, 04/26/2020 HbA1c 11/13/2021 05/13/2021, 10/27/2017 GFR 06/22/2023 06/21/2022, 03/14, 04/05/2022, Additional history exists Influenza Vaccine (FLU shot) (#1) 2023 01/26/2017, 11/25/2015, 02/01/2009 HPV (Gardasil) Vaccine Aged Out No lo nger eligible based on patient's age to complete this topic MENINGOCOCCAL (MENACTRA/MENVEO) Aged Out No longer eligible based on patient's age to complete this topic documented as of this encounter Medical Devices Not on filedocumented as of this encounter Visit Diagnoses Diagnosis 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 (HCC)- Primary documented in this encounter Administered Medications Inactive Administered Medications - up to 3 most recent administrations Medication Order MAR Action Action Date Dose Rate Site Fluorescein Sodium (Fluorescite) inj 500 mg 500 mg (5 mL), Intravenous, ONCE, On Bibi 02/22/24 at 1230, For 1 doseIndications:Prolifera tive diabetic retinopathy of both eyes without macular edema associated with type 1 diabetes mellitus (HCC) Given 02/22/2024 11:54 AM EST 500 mg Antecubital Left documented in this encounter Care Teams Log Hauler Relationship Specialty Start Date End Date Andrea Ray DO [address] [place] [address] PCP - General Family Medicine 06/02/20 documented as of this encounter
[2024-03-12] MEDS: ACETAMINOPHEN 325 MG TAB PO PRN (17:49)
[2024-03-12] MEDS: INSULIN ASPART PER UNIT CHARGE SC SCH (18:27)
[2024-03-12 18:41] LABS: Base Excess VBG 1.3 mEq/L; HCO3 VBG 27 mmol/L; Oxygen Saturation VBG 65.4 %; PCO2 VBG 47 mmHg (38-50); PO2 VBG 36 mmHg; pH VBG 7.37 (7.36-7.41)
[2024-03-12 18:59] LABS: BUN Creatinine Ratio 21.1 (10-20); Calcium 9.2 mg/dl (8.6-10.3); Creatinine Clr Calc Pharmacy 100.5 ml/min; Phosphorus 3.4 mg/dl (2.5-4.9); Potassium 3.8 mmol/L (3.5-5.1)
[2024-03-12 19:41] VITALS: O2SAT 98
[2024-03-12 19:59] LABS: Appearance Urine Clear (Clear); Bacteria Urine Automated None Seen (None Seen); Bilirubin Urine Negative (Negative); Blood Urine Negative (Negative); Cast Urine Automated 0-2 /lpf (0-2); Color Urine Yellow; Epithelial Cell Urine Auto 0-2 /hpf (0-2); Glucose Urine UA 3+ (Negative); Ketones Urine 2+ (Negative); Leukocyte Esterase Urine Negative (Negative); Nitrite Urine Negative (Negative); Protein Urine 2+ (Negative); RBC Urine Automated 0-2 /hpf (0-2); Specific Gravity Urine 1.035 (1.000-1.030); Urobilinogen Urine Negative (Negative); WBC Urine Automated 0-5 /hpf (0-5); pH Urine 5.5 (4.5-7.5)
[2024-03-12] MEDS: LOSARTAN POTASSIUM 50 MG TAB PO SCH (20:16)
--- NOTE | 2024-03-12 20:34 | Electrocardiogram Report ---
Test Reason : Blood Pressure : */* mmHG Vent. Rate : 80 BPM Atrial Rate : 80 BPM P-R Int : 166 ms QRS Dur : 92 ms QT Int : 364 ms P-R-T Axes : 47 79 59 degrees QTcB Int : 419 ms Normal sinus rhythm Normal ECG When compared with ECG of 16-Oct-2017 18:34, No significant change was found Confirmed by Linden Fournier ([id number]) on 03/12/2024 8:33:34 PM Referred By: REFERRED SELF Confirmed By: Linden Fournier
[2024-03-12 21:13] LABS: Influenza A virus by PCR Negative (Neg); Influenza B virus by PCR Negative (Neg); RSV by PCR Negative (Neg); SARS CoV2 RNA(COVID-19) Ceph NEGATIVE (Negative)
--- OUTSIDE RECORDS SUMMARY | 2024-03-12 21:29 | External Medical Summary | Summary of Care ---
Author Name Unknown Organization [facility] Address [address] [place] [address] Phone [phone] Care Team Providers Care Forestry Adviser Name Role Phone RyaJoseruth Thomason DO Primary Care Provider Reason for Visit * Reason Onset Date Comments Precert Not Needed 03/12/2024 Encounter Details Date Type Department Care Team (Late st Contact Info) Description 03/12/2024 Telephone Ophthalmology, [facility] [address] [facility] [place] [address] Osman Rosales DO [address] [place] [address] Precert Not Needed Allergies Active Allergy Reactions Criticality Noted Date Comments Latex 03/17/2021 documented as of this encounter (statuses as of 03/12/2024) Medications HUMALOG 100 UNIT/ML SUBQ SOLN Unsure [...] AF) Apply topically to affected area. Active documented as of this encounter (statuses as of 03/12/2024) Active Problems Problem Noted Date Diagnosed Date Diabetes mellitus without complication 3 documented as of this encounter (statuses as of 03/12/2024) Immunizations Name Administration Dates Next Due COVID-19 [...] 0 06/03/1995 - 06/03/2007 Smokeless Tobacco: Never Alcohol Use Standard Drinks/Week Comments Yes 5 (1 standard drink = 0.6 oz pur e alcohol) Sex and Gender Information Value Date Recorded Sex Assigned at Not on file Legal Sex Male 6:52 AM EST Gender Identity Not on file Sexual Orientation Not on file documented as of this encounter Miscellaneous Notes * Telephone Encounter - Skylar Scott TECH - 03/12/2024 10:19 AM EST New Medication Insurance: [employer]OW[employer] BRANDON ([facility]) Provider: Osman Rosales DO Tax ID: [id number] Office Address: [address] [place] [address] [place] [address] Office Office Drug Name/CPT: Avastin ICD 10: E10.3593 Dosage: 2.75 mg Eye Treated: left and right Frequency: q4-6 weeks Prior Eye medications received: none Specialty Pharmacy/Buy and bill? Office stock documented in this encounter Plan of Treatment Upcoming Encounters Date Type Department Care Team (Late st Contact Info) Description 03/25/2024 10:45 AM EST Office Visit Ophthalmology, [facility] [address] [place] [address] Osman Rosales DO [address] [facility] [place] [address] 10/08/2024 8:00 AM EDT Office Visit NephrologyRo [address] [place] [address] Madelin Singletary MD [address] [place] [id number] Health Maintenance Due Date Last Done Comments DTap/Tdap Vaccines (6 - Tdap) 12/02/1998 08/03/1992, 08/09/1989, 06/01/1988, Additional history exists Depression Screening 1999 HIV Screening 12/02/2002 Diabetic Eye Exam 12/02/2005 Diabetic Foot Exam 12/02/2005 Hepatitis C Screening 12/02/2005 Hepatitis B Vaccine (1 of 3 - 19+ 3-dose series) 12/02/2006 Pneumococcal Vaccine: Pediatrics (0 to 5 Years) and At-Risk Patients (6 to 18 Years and 19+ Years) (1 of 2 - PCV) 12/02/2006 Albumin/Creatinine Ratio 10/27/2018 10/27/2017 COVID-19 Vaccine [...] mellitus (HCC)- Primary documented in this encounter Care Teams Forestry Adviser Relationship Specialty Start Date End Date Andrea Ray DO [address] [place] [address] PCP - General Family Medicine 06/02/20 documented as of this encounter
[2024-03-12 23:14] LABS: Base Excess VBG 1.5 mEq/L; HCO3 VBG 27 mmol/L; Oxygen Saturation VBG 83.7 %; PCO2 VBG 43 mmHg (38-50); PO2 VBG 52 mmHg
[2024-03-12 23:37] LABS: BUN Creatinine Ratio 17.3 (10-20); Calcium 8.7 mg/dl (8.6-10.3); Creatinine Clr Calc Pharmacy 71.8 ml/min; Potassium 3.9 mmol/L (3.5-5.1)
[2024-03-12 23:48] VITALS: RESP 16; TEMP 98.1
[2024-03-13] MEDS: LANTUS PER UNIT CHARGE SC ONE (01:57)
[2024-03-13 03:07] VITALS: BP 153/85
[2024-03-13 06:41] LABS: BUN Creatinine Ratio 17.5 (10-20); Calcium 8.5 mg/dl (8.6-10.3); Creatinine Clr Calc Pharmacy 92.7 ml/min
[2024-03-13 07:13] LABS: Estimated Average Glucose 209 mg/dl; Hemoglobin A1C 8.9 % (4.5-5.6)
[2024-03-13] MEDS ORDERED: GLUCOSE 10 TAB/TUBE PO PRN (07:48)
[2024-03-13] MEDS ORDERED: INSULIN ASPART 100 UNITS/ML VIAL SC PRN (07:48)
[2024-03-13] MEDS ORDERED: DEXTROSE 50% 50 ML SYRINGE IV PRN (07:48)
[2024-03-13] MEDS ORDERED: GLUCAGON FOR INJ 1 MG VIAL SQ PRN (07:48)
[2024-03-13] MEDS ORDERED: GLUCOSE 40% GEL 15 GM TUBE PO PRN (07:48)
[2024-03-13] MEDS ORDERED: CARBOHYDRATES FOR HYPOGLYCEMIA PO PRN (07:48)
[2024-03-13] MEDS: INSULIN ASPART PER UNIT CHARGE SC SCH (08:08)
--- NOTE | 2024-03-13 11:56 | Pharmacy Report ---
Pharmacy Glycemic Short Note 2 - Date of Service March 13, 2024 - Glycemic Short BSG Results (Last 24 hours): 03/12/24 03/12/24 03/12/24 11:40 13:13 14:17 Glucose 586 H* POC Glucose 412 H* 348 H* 03/12/24 03/12/24 03/12/24 15:20 16:17 17:18 Glucose POC Glucose 278 H 248 H 207 H 03/12/24 03/12/24 03/12/24 18:16 18:31 19:15 Glucose 177 H POC Glucose 165 H 183 H 03/12/24 03/12/24 03/12/24 20:12 21:07 22:07 Glucose POC Glucose 159 H 120 H 99 03/12/24 03/12/24 03/12/24 23:01 23:12 23:36 Glucose 78 POC Glucose 69 L* 116 H 03/13/24 03/13/24 03/13/24 00:25 01:29 02:32 Glucose POC Glucose 171 H 141 H 133 H 03/13/24 03/13/24 03/13/24 03:26 04:02 05:00 Glucose POC Glucose 99 117 H 168 H 03/13/24 03/13/24 03/13/24 05:34 06:06 08:01 Glucose 167 H POC Glucose 152 H 152 H 03/13/24 03/13/24 10:12 11:02 Glucose POC Glucose 278 H 269 H OUTPATIENT ANTIDIABETIC REGIMEN: * Insulin pump * Basal rate = 1 unit/hr * CF: 55 (from [id number]), 45 (from 9933-3665) * CR: 14 HbA1c: * 8.9% (03/13/24) ASSESSMENT: * 38 yo M admitted on 03/12/24 secondary to hyperglycemia. Pharmacy has been consulted to assist with inpatient glycemic management. Patient is a Type 1 diabetic as an outpatient. Please refer to outpatient regimen and most recent HbA1c above. * Patient did have a high anion gap on presentation but CO2 and pH were fine. Started on insulin drip for hyperglycemia. Was ordered and tolerating a T1DM last evening. Received ~26 units from insulin drip over a 16 hour span. * Was transitioned off insulin drip around 2 am today. Given 12 units of basal which is 1/2 of home basal dose. Started on Novolog which was tightened this AM. * Provider and patient prefer to transition back to insulin pump today. Will resume home insulin pump at noon today. Patient has all supplies and nursing confirms he is competent to use pump. Provider aware that pharmacy will sign off of pump patient once it resumes. PLAN FOR INPATIENT GLYCEMIC CONTROL: * Resume insulin pump at noon per home settings * Per policy, pharmacy will not be consulted on insulin pump patients. Please feel free to consult should any pump issues arise.
[2024-03-13] MEDS ORDERED: INSULIN, Rapid-Acting PUMP SC SCH ×2 (12:00→14:00)
--- NOTE | 2024-03-13 12:08 | Discharge Summary ---
Discharge Summary Date of Service date of admission - March 12, 2024 date of discharge - March 13, 2024 Principal Dx & Hospital Course #1 = Principal Diagnosis (1) Hyperglycemia due to type 1 diabetes mellitus: Patient presented with severe hyperglycemia Peak glucose was [address] of serum bicarbonate and pH he was not in DKA he did have ketones in the urine and and his anion gap was mildly elevated Upon ER presentation he was placed on insulin infusion & IV fluids With the above his blood sugars normalized quickly Serial labs were stable He was weaned off his insulin infusion AM of 03/13/24 His insulin pump containing humalog was reconnected mid-day on 03/13/24 Hemoglobin a1c was 8.9% It was uncertain what the cause of his hyperglycemia was There was no evidence of an infectious process; u/a was not suggestive of UTI, COVID/flu/RSV swab was negative, and he had no clinical evidence of pneumonia Further, he had not had any issues with his humalog pump in the days/hours leading up to his hyperglycemia He denied any recent use of steroids Denied any significant change in his dietary habits Regardless of etiology he was doing well at discharge and has f/u with Varghese Schultz at the Diabetes clinic on 04/02/24 I did encourage him to reach out to the Diabetes clinic post-discharge if he experiences ongoing issues with hyperglycemia at home (2) Polyarthralgia: Chronic joint pains with AM stiff, especially the bilateral knees He has seen [facility] in the past and 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 Advised f/u with Rheumatology - gave contact information for [facility] (Dr Pablo Almaraz) Can use voltaren gel prn (3) Hypertension: Mildly elevated throughout the admission Continue losartan 50mg BID He may need additional BP control in the future - f/u with PCP for such (4) Diabetic nephropathy associated with type 1 diabetes mellitus: Continue losartan 50mg BID Plan Chronic stable diagnoses: frequent nosebleeds H&H stable while hospitalized; no epistaxis at any time while here Chronic cough/asthma no exacerbation while hospitalized; COVID/flu/RSV swab negative; continue albuterol inhaler as needed Admission HPI Per Admitting Provider Patient is a 38-year-old with past medical history of type 2 diabetes, asthma, hypertension. He presents today after his insulin pain seem to malfunction last night. He stated that he had a glucose of greater than 400 last evening and felt like his insulin pump was not working correctly. He changed to the insulin pump site at midnight and then again at 5 AM. The alarms were going off on the pump all night stating he was hyperglycemic. He came into the ER today and was found to have a glucose of 586, now down to 491. He was started on an insulin drip after the ER physician talked with pharmacy. he stated that he has chronic pain in his extremities specifically in his bilateral knee knees, this is acutely exacerbated today and typically flares up whenever he is hyperglycemic. He stated that he was nauseous this morning but it has subsided. He also endorses frequent nosebleeds, chronic. He has had an increase in urine output since last night. Patient denies fever, chills, headache, dizziness, lightheadedness, vision changes, rhinorrhea, sore throat, cough, sputum production, dyspnea, dyspnea on exertion, chest pain, abdominal pain, current nausea, vomiting, dysuria, numbness, tingling. He has had DKA in the past approximately 6 to 7 years ago. He has had the same insulin pump for approximately 5 years, [employer], software update 4. He has never had an issue with his insulin pump before. He does not use nicotine and socially drinks alcohol. He denies past history of CVA or VTE. He did have a pneumothorax in 2010. He did not take his home medications this a.m. including his losartan. He wishes to be full code at this time. His was updated at bedside. Discharge Exam gen - NAD, looks well neck - no JVD mouth - MMM, no thrush or other lesions heart - RRR, s1 s2, no murmur lungs - CTA b/l abd - soft NT ND BS+ ext - no edema, pulses 2+ b/l skin - no rashes musculo - no joint synovitis of any small or large joint upper or lower extremities Discharge Plan Discharge Items Patient Disposition: Home - Self-Care Reason For Visit: HYPERGLYCEMIA Discharge Diagnosis: 1. uncontrolled type 1 diabetes with hyperglycemia - latter MUCH improved 2. proteinuria, chronic 3. chronic arthralgias - follow-up with [facility] for work- up/treatment Activity: Resume your previous activity Non-emergency contact: Primary Care Provider Call non-emergency contact if: you have any medication questions and your symptoms worsen Follow-up/Referrals: Varghese Schultz PA-C [Physician Embedded Case Manager] - 04/02/24 (keep previously scheduled appointment with Mr Schultz at the diabetes clinic ) Andrea Ray DO [Primary Care Provider] - Casper Almaraz DO [Physician] - (if desired you can see [facility] for your joint pains) Diet: Carb Count or DM1 Addtl Attending Provider Instructions: Mr Tolentino, You were hospitalized due to hyperglycemia. Your initial blood glucose level was 586. Although technically you were not in DKA you were very close to meeting criteria for such. You quickly improved with IV fluids and IV insulin. We transitioned you back to your personal insulin pump prior to discharge. During the stay we did not find any infections that would have caused your blood sugars to spike. We did not find COVID, influenza, Lyme disease, urinary infection, etc. It is not certain what caused your blood sugars to spike. However, at time of discharge, your blood sugars are now under very good control. Please continue your insulin pump per prior parameters laid out by the diabetes clinic and stay in close contact with them if you have any further troubles. I will send a message to Mr Schultz regarding your hospitalization. Finally, if you need to use something topical for pain in your knees, elbows, shoulders, etc - you can use [id number] voltaren gel (diclofenac). Dose --> 4 grams up to 4 times daily as needed for joint pain. For smaller joints (wrists, fingers, etc) use 2 grams each time. Follow-up - see separate section Return to [facility] if - * you have fevers over 100 degrees * you have uncontrolled sugars (persistently greater than 350-400) * you have shortness of breath or chest pain * you have any other concerns Happy new year! -Dr Turner Pending Studies at Discharge: No Stand-Alone Forms: [facility] [employer], Work/School Release, Smoking Cessation Medications and DC Order Prescriptions: New diclofenac sodium [Voltaren Arthritis Pain] 1 % Gel 4 g EXT QID PRN (Reason: joint pain) Qty: 1 0RF Rx Instructions: purchase [id number] Continued albuterol sulfate 90 mcg/actuation HFA aerosol inhaler 2 inh inhalation QID PRN (Reason: shortness of breath or wheezing) Qty: 20.1 0RF insulin lispro [Humalog U-100 Insulin] 100 unit/mL solution See Rx Instructions SQ DAILY 90 Days Qty: 70 3RF Rx Instructions: infuse up to 75 units daily via insulin pump subcut daily; (DME) OneTouch Verio test strips Strip See Rx Instructions .Route Qty: 500 3RF Rx Instructions: As directed, test 4 times daily losartan 50 mg tablet 50 mg PO BID Qty: 180 1RF (DME) MiniMed 770G Insulin Pump Misc See Rx Instructions .Route Rx Instructions: As directed (DME) insulin syringe-needle U-100 [BD Insulin Syringe Ultra-Fine] 1 mL 31 gauge x 5/16 syringe See Rx Instructions .Route Qty: 100 0RF Rx Instructions: for use as a backup in case of pump failure acetaminophen [Tylenol 8 Hour] 650 mg tablet extended release 2,600 mg PO DAILY PRN (Reason: Pain) (DME) Ketone Urine Test Strip See Rx Instructions .Route Qty: 100 0RF Rx Instructions: As directed glucagon 3 mg/actuation spray,non-aerosol 3 mg intranasal ONCE PRN (Reason: hypoglycemia ) Qty: 2 1RF betamethasone dipropionate 0.05 % lotion 1 applic topical DAILY Qty: 60 1RF Rx Instructions: Apply to areas of the scalp daily x 2 weeks. Then use as needed for flaring. ketoconazole 2 % shampoo 1 applic topical [id number] Rx Instructions: 1 applic topically to scalp twice weekly. Let sit for 3-5 minutes prior to rinsing.; Discharge Orders: Discharge Order (Routine); Ordered 03/13/24 Ordered By: Gualberto Turner Admission Data Admit Date/Time: 03/12/24 13:42 Attending Provider: Gualberto Turner Admit Provider: Gualberto Turner Primary Care Provider: Andrea Ray Other Providers: Gualberto Turner Other Interventions: Discharge Summary Assessment (RN) Last Done: 03/13/24 12:13 Hospital Stay Data Consultations Pharmacy glycemic team Pending Results Patient Have Any Pending Studies at Discharge: No Discharge Instructions Given to Patient (Per Discharging Provider) Mr Tolentino, You were hospitalized due to hyperglycemia. Your initial blood glucose level was 586. Although technically you were not in DKA you were very close to meeting criteria for such. You quickly improved with IV fluids and IV insulin. We transitioned you back to your personal insulin pump prior to discharge. During the stay we did not find any infections that would have caused your blood sugars to spike. We did not find COVID, influenza, Lyme disease, urinary infection, etc. It is not certain what caused your blood sugars to spike. However, at time of discharge, your blood sugars are now under very good control. Please continue your insulin pump per prior parameters laid out by the diabetes clinic and stay in close contact with them if you have any further troubles. I will send a message to Mr Schultz regarding your hospitalization. Finally, if you need to use something topical for pain in your knees, elbows, shoulders, etc - you can use [id number] voltaren gel (diclofenac). Dose --> 4 grams up to 4 times daily as needed for joint pain. For smaller joints (wrists, fingers, etc) use 2 grams each time. Follow-up - see separate section Return to [facility] if - * you have fevers over 100 degrees * you have uncontrolled sugars (persistently greater than 350-400) * you have shortness of breath or chest pain * you have any other concerns Happy new year! -Dr Turner Total Time Total Time Spent Total Time Spent (In Minutes): 40 Coding Level of Care Code 97016 INP/OBS DISCH >30 MIN Diagnoses Hyperglycemia due to type 1 diabetes mellitus E10.65 Polyarthralgia M25.50 Hypertension I10 Diabetic nephropathy associated with type 1 diabetes mellitus E10.21
[2024-03-13 12:14] VITALS: PULSE 64
== END 2024-03-13 12:44 | disposition home or self-care (01) ==
LOC: ED 11:27 → EDINP 11:27 → 2E 14:33

== ENCOUNTER 2025-01-15 14:36 | Inpatient (IN) ==
[2025-01-15] MEDS ORDERED: GLUCOSE 40% GEL 15 GM TUBE PO PRN (14:42)
[2025-01-15] MEDS ORDERED: GLUCAGON FOR INJ 1 MG VIAL SQ PRN (14:42)
[2025-01-15] MEDS ORDERED: GLUCOSE 10 TAB/TUBE PO PRN (14:42)
[2025-01-15] MEDS ORDERED: CARBOHYDRATES FOR HYPOGLYCEMIA PO PRN (14:42)
[2025-01-15] MEDS: PLASMA-LYTE A 2,000 ML IV ONE (14:49)
--- NOTE | 2025-01-15 14:49 | Emergency Department Note ---
Impression & Plan DKA (diabetic ketoacidosis), Pseudohyponatremia, High anion gap metabolic acidosis, Acute dehydration ED Provider Note NAME: JESSIKA NIX AGE: 39 SEX: M : 1985 ARRIVES VIA: Ambulance INFORMANT: Patient, EMS ED PROVIDER(S): Reagan Israel DO CHIEF COMPLAINT: hyperglycemia HPI: This is a 39-year-old male with the PMHx of IDDM1, HTN and CKD presenting to [facility] for further evaluation of hyperglycemia. Patient is accompanied by EMS who provide additional history. EMS notes that his glucose was significantly elevated. He remained hemodynamically stable en route. Patient reports that he has been hyperglycemic over the last 24 hours. Has been bolusing insulin via pump over the last 24 hours. Patient states he continues to be hyperglycemic. Patient reports significant myalgias and arthralgias. He also reports nausea and vomiting. Patient does have mild cough and congestion. Patient states that he feels that he is likely in DKA. He notes that he took a test strip this morning for urinalysis that showed ketonuria. They deny fever or chills. Denies chest pain or palpitations. No shortness of breath. No urinary complaints. No recent changes in bowel movements. Patient denies recent changes in medications or OTC supplements. Patient offers no other complaints, today. ADDITIONAL HISTORY OBTAINED: Per HPI Chronic Medical/Social Conditions Affecting Care: Per HPI PAST MEDICAL HISTORY: See Below PAST SURGICAL HISTORY: See Below FAMILY HISTORY: See Below SOCIAL HISTORY: See Below HOME MEDICATIONS: See Below ALLERGIES: See Below VITALS: See Below PHYSICAL EXAMINATION: GENERAL: Sitting up in bed, alert, ill appearing, well nourished, no distress, non-toxic EYE EXAM: normal conjunctiva. OROPHARYNX: no exudate, no erythema, lips, buccal mucosa, and tongue normal and mucous membranes are dry NECK: supple, no nuchal rigidity, no adenopathy, non-tender LUNGS: Clear to auscultation. Normal chest wall mechanics HEART: no murmurs, tachycardic rate, regular rhythm ABDOMEN: abdomen soft, non-tender, no masses, no rebound or guarding. BACK: Back is symmetrical on inspection and there is no deformity, no midline tenderness, no CVA tenderness. SKIN: no rashes and no bruising UPPER EXTREMITIES: upper extremities are grossly normal. LOWER EXTREMITIES: No pitting edema. NEURO EXAM: Normal sensorium, GCS 15, normal speech, no gross weakness of arms, no gross weakness of legs. MEDICAL DECISION MAKING: Differential diagnoses includes but not limited to poorly controlled diabetes, hyperglycemia, DKA, HHS, viral URI, pneumonia, UTI, electrolyte derangements, acute dehydration, gastroenteritis In summary, this is a 39 year old male who presented with hyperglycemia. Differential as above. Nursing notes and pertinent past medical records reviewed. Vital signs reviewed and the patient is Hypertensive and tachycardic but otherwise afebrile and hemodynamically stable. History and presentation revealed poorly controlled DM now with hyperglycemia and likely DKA. I reviewed the patient's insulin pump with him and records over the last 24 hours. It appears since 1 AM, the patient has had multiple episodes of hyperglycemia leading to bolus of insulin. He has had approximately 46 units of fast-acting insulin bolused over the course of the day. Physical examination revealed as above. As a result of my initial evaluation, IV access was established and the patient was placed on CCRM. Therapeutics ordered include 2L IVFR with crystalloid. Antiemetics and pain control ordered. Plan to discontinue his [employer] insulin pump. Diagnostics interpreted by me include cardiac monitoring as listed below: -Cardiac Monitoring: An order was placed for continuous cardiac monitoring. The monitor shows a rate of 90-110s with regular rhythm. Patient completed laboratory studies and imaging. I-STAT chemistries show hyponatremia likely pseudohyponatremia in setting of hyperglycemia. Potassium is 3.9. Bicarbonate is low at 14. Anion gap present at 26. HEBER noted. Results independently interpreted by me are pH shows metabolic acidosis at 7.27 with respiratory compensation. Hyperglycemia noted at 467. Given hypokalemia on laboratory evaluation including i-STAT's, K riders ordered as well as p.o. potassium chloride. Plan to start insulin infusion. IV crystalloid resuscitation is ongoing. Leukocytosis present. Left shift present. Could be reactive to the patient DKA and vomiting. Could also be infectious but thought to be less likely. The patient was managed with Continue IV fluid resuscitation. Was also started on maintenance IV fluids with potassium chloride. Patient had improvement and his electrolytes and glucose while in the emergency department. We continued insulin drip. Patient will need diabetes education. Did place him on 2 g of ceftriaxone given concerns for possible infectious component.. Ultimately, the decision was made to admit the patient for DKA. I discussed the case with the hospitalist service via telephone/TigerText and they are agreeable to admit the patient to their services. Based on the above, including the patient's age, coexisting illnesses, labs, imaging, and exam findings the decision to treat as an inpatient. I discussed the patient with the hospitalist team who recommended admission to their services. They received the medications, treatments, interventions indicated above and their condition remained guarded. I discussed my findings with the patient and their family and they understand and agree with the treatment plan. All patient / family questions were answered to their satisfaction. Consults/Care Managements Discussions: Per MDM ER treatment provided: See above Procedures:none Critical Care: I have personally spent 35 minutes of critical care time in direct management of this patient. This includes bedside care, interpretation of diagnostic studies, and testing, discussion with consultants, patient, and family members, and other require inpatient management activities. This 35 minutes is in excess of all separately billable procedures. The chart was completed utilizing View and Chew Speech voice recognition software. Grammatical errors, random word insertions, pronoun errors, and incomplete sentences are an occasional consequence of this system due to software limitations, ambient noise, and hardware issues. Any formal questions or concerns about the content, text, or information contained within the body of this dictation should be directly addressed to the physician for clarification. 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 Vitamin D insufficiency Diabetic nephropathy associated with type 1 diabetes mellitus Encounter for vasectomy counseling Avulsion, finger tip (Acute) Shingles (Acute) Type 1 diabetes mellitus, uncontrolled Positive for macroalbuminuria Nephropathy Type 1 diabetes mellitus with retinopathy Hypertension Uncontrolled hypertension Chronic kidney disease, stage I Medical History (Updated 01/16/25 @ 01:55 by Reagan Israel DO) Productive cough Hyperglycemia due to type 1 diabetes mellitus Hypertension Polyarthralgia Surgical History (Updated 01/15/25 @ 20:49 by Gualberto Turner MD) Hx of laser photocoagulation of retina Dr Roger vargas/marzena eyes Family History (Updated 01/15/25 @ 20:50 by Gualberto Turner MD) Aunt Breast cancer Grandmother (Maternal) No problems noted. Grandmother Breast cancer Pancreatic cancer Dementia Skin cancer Grandfather Myocardial infarction Sister Thyroid disease Denies family history of Ovarian cancer Prostate cancer Colorectal cancer Social History Smoking Status: Former smoker Tobacco Type: Cigarettes Age Started Using Tobacco: 19; Age Quit Using Tobacco: 30; packs per day: 2; Second Hand Exposure: No; Do You Dip or Chew Tobacco: No; Tobacco Cessation Education Requested by Patient: No Hx Alcohol Use: Yes Alcohol type: wine Alcohol Intake Frequency: 2-4 x/Month Hx Substance Use: Yes (medical marijuana) Last Used Substance: Days (ago) Last Used Substance Other:: 2 days ago Substance Use Type Other:: medical marijuana card Preferred Language: South African Communication Ability: Effective Visual Impairment: No Limitations Hearing Ability: Normal Pharmacist Apprentice Required: No Beliefs That Will Affect Care: None marital status: Current Living Situation: Spouse current occupational status: employed current occupation: [employer] How many Children do You have: 3 Other Information That Helps Us Care for You: No Feels Safe at Home: Yes Safety Concerns: Feels Safe At This Time Childhood Exposure to Second-Hand Smoke: No Diet: other and regular Diet Comment: no red meat or pork Dental Care, Regularly: Yes Physical Activity Frequency: 5-6 Times per Week Seatbelt Use: always Sunscreen Use: Yes Assistive Devices: None Assistive Devices Comment: insulin pump and glucose monitor Allergies Allergies Allergy/AdvReac Type Severity Reaction Status Date / Time latex Allergy Mild RASH Verified 01/15/25 17:25 Home Meds Home Medications Medication Instructions Recorded Confirmed subcutaneous insulin pump (MiniMed 10/15/20 01/15/25 770G Insulin Pump) ketoconazole 2 % shampoo 1 applic topical 2XWK 03/12/24 01/15/25 acetone (urine) test (Ketone Urine 04/02/24 01/15/25 Test strips) cholecalciferol (vitamin D3) 10 10 mcg PO QAM 06/10/24 01/15/25 mcg (400 unit) capsule (Vitamin D3) diclofenac sodium 1 % topical gel 4 g EXT BID PRN joint pain 06/10/24 01/15/25 (Voltaren Arthritis Pain) ibuprofen 200 mg tablet 400 mg PO Q6H PRN Pain 06/10/24 01/15/25 multivitamin 1 tab PO QAM 06/10/24 01/15/25 amlodipine 10 mg-benazepril 40 mg 1 cap PO QAM 10/17/24 01/15/25 capsule hydrochlorothiazide 25 mg tablet 25 mg PO QAM 01/15/25 01/15/25 metoprolol succinate 25 mg 25 mg PO QPM 01/15/25 01/15/25 tablet,extended release 24 hr spironolactone 25 mg tablet 12.5 mg PO QAM 01/15/25 01/15/25 Previous Rx's Medication Instructions Recorded glucagon 3 mg/actuation nasal spray 3 mg intranasal ONCE PRN 12/29/21 hypoglycemia #2 ea albuterol sulfate 90 mcg/actuation 2 inh inhalation QID PRN shortness 11/22/22 aerosol inhaler of breath or wheezing #20.1 grams insulin syringe-needle U-100 1 mL #100 ea 08/22/23 31 gauge x 5/16" (BD Insulin Syringe Ultra-Fine) betamethasone dipropionate 0.05 % 1 applic topical DAILY #60 mL 02/20/24 lotion Humalog U-100 Insulin 100 unit/mL See Rx Instructions subcut DAILY 06/13/24 subcutaneous solution (insulin 90 days #70 mL lispro) sildenafil 50 mg tablet (Viagra) 50 mg PO DAILY PRN sexual activity 10/16/24 #30 tabs blood sugar diagnostic (OneTouch #500 ea 11/21/24 Verio test strips) Results & Data (ED) Vital Signs Vital Signs - 24 hr 01/15/25 14:40 01/15/25 15:00 01/15/25 15:10 Temperature 36.0 C L Temperature Source Oral Pulse Rate 105 H 102 H 111 H Pulse Rate from SpO2 Sensor 102 H Respiratory Rate 20 20 Blood Pressure 168/94 H Blood Pressure Mean 118 Pulse Oximetry 98 100 Sepsis Recent Fever Within 48 Hours No Sepsis New/Unexplained Change in Mental Status No Sepsis Action Taken by Nursing No Action Required 01/15/25 15:30 01/15/25 16:00 01/15/25 16:03 Temperature Temperature Source Pulse Rate 95 H 91 H 90 Pulse Rate from SpO2 Sensor Respiratory Rate 18 18 16 Blood Pressure Blood Pressure Mean Pulse Oximetry Sepsis Recent Fever Within 48 Hours Sepsis New/Unexplained Change in Mental Status Sepsis Action Taken by Nursing 01/15/25 16:04 01/15/25 16:06 01/15/25 16:30 Temperature Temperature Source Pulse Rate 89 91 H Pulse Rate from SpO2 Sensor Respiratory Rate 18 15 Blood Pressure 120/60 Blood Pressure Mean 75 Pulse Oximetry Sepsis Recent Fever Within 48 Hours Sepsis New/Unexplained Change in Mental Status Sepsis Action Taken by Nursing 01/15/25 17:00 01/15/25 17:00 01/15/25 17:30 Temperature Temperature Source Pulse Rate 93 H 100 H Pulse Rate from SpO2 Sensor Respiratory Rate 16 16 Blood Pressure 106/45 L Blood Pressure Mean 71 Pulse Oximetry Sepsis Recent Fever Within 48 Hours Sepsis New/Unexplained Change in Mental Status Sepsis Action Taken by Nursing 01/15/25 18:09 Temperature Temperature Source Pulse Rate 92 H Pulse Rate from SpO2 Sensor Respiratory Rate 16 Blood Pressure Blood Pressure Mean Pulse Oximetry Sepsis Recent Fever Within 48 Hours Sepsis New/Unexplained Change in Mental Status Sepsis Action Taken by Nursing Laboratory Data 01/15/25 14:52 01/16/25 00:44 Lab Results 01/15/25 01/15/25 01/15/25 Range/Units 14:41 14:52 15:00 WBC 15.56 H (4.8-10.8) K/ul RBC 4.94 (4.70-6.10) M/uL Hgb 15.2 (14.0-18.0) g/dl POC Hgb 15.0 (14.0-18.0) g/dl Hct 41.4 L (42.0-52.0) % POC Hct 44 (42-52) % MCV 83.8 (80.0-100.0) fL MCH 30.8 (25.0-34.0) pg MCHC 36.7 H (32.0-36.0) g/dL RDW Std Deviation 35.9 L (36.4-46.3) fL RDW Coeff of Pao 11.9 (11.5-14.5) % Plt Count 303 (130-400) K/uL MPV 10.1 (9.4-12.4) fL Immature Gran % (Auto) 0.6 % Neut % (Auto) 88.5 % Lymph % (Auto) 6.4 % Cowley % (Auto) 3.5 % Eos % (Auto) 0.0 % Baso % (Auto) 1.0 % Neut # (Auto) 13.78 H (1.40-6.50) K/uL Lymph # (Auto) 0.99 L (1.20-3.40) K/uL Cowley # (Auto) 0.55 (0.11-0.59) K/uL Eos # (Auto) 0.00 (0.00-0.50) K/uL Baso # (Auto) 0.15 (0.00-0.20) K/uL Immature Gran # (Auto) 0.09 (0.01-0.20) K/uL VBG pH 7.27 L (7.36-7.41) VBG pCO2 25 L (38-50) mmHg VBG pO2 53 mmHg VBG HCO3 12 mmol/L VBG O2 Saturation 84.2 % VBG Base Excess -13.6 mEq/L POC Sodium 133 L (135-144) mmol/L Sodium 133 L (136-145) mmol/L POC Potassium 3.9 (3.3-5.0) mmol/L Potassium 4.0 (3.5-5.1) mmol/L POC Chloride 98 L (101-112) mmol/L Chloride 91 L (98-107) mmol/L Carbon Dioxide 13 L (21-32) mmol/L POC Total CO2 14 L (24-31) mmol/L Anion Gap 29 H (3-11) POC Anion Gap 26.0 H (16-25) mmol/L POC BUN 32 H (7-18) mg/dl BUN 36 H (6-23) mg/dl Creatinine 1.73 H (0.6-1.4) mg/dl POC Creatinine 1.6 H (0.6-1.3) mg/dl Est Cr Clr Drug Dosing 54.7 ml/min eGFR 51.50 BUN/Creatinine Ratio 20.8 H (10-20) Glucose 526 H* (70-99(Fasting)) mg/dl POC Glucose 467 H* (70-99) mg/dl POC Glucose (other) 519 H* (70-99) mg/dl Estimat Average Glucose 217 mg/dl Hemoglobin A1c 9.2 H (4.5-5.6) % Calcium 10.5 H (8.6-10.3) mg/dl POC Ioniz Calcium Emma 1.11 L (1.12-1.32) mmol/l Phosphorus 5.9 H (2.5-4.9) mg/dl Magnesium 2.1 (1.7-2.4) mg/dl Total Bilirubin 1.8 H (0.2-1.0) mg/dl AST 17 (13-39) U/L ALT 20 (7-52) U/L Alkaline Phosphatase 121 H (34-104) U/L Total Protein 8.1 (6.0-8.3) gm/dl Albumin 4.9 (3.4-5.0) gm/dl Globulin 3.2 (2.5-4.0) gm/dl Albumin/Globulin Ratio 1.5 (0.9-2) Procalcitonin 0.94 H (0-0.5) ng/ml Adenovirus (PCR) Not Detected (NotDetected) B. pertussis DNA (PCR) Not Detected (NotDetected) B.parapertussis DNA PCR Not Detected (NotDetected) C. pneumoniae DNA (PCR) Not Detected (NotDetected) Coronavirus OC43 (PCR) Not Detected (NotDetected) Coronavirus HKU1 (PCR) Not Detected (NotDetected) Coronavirus 229E (PCR) Not Detected (NotDetected) SARS-CoV-2 (PCR) Not Detected (NotDetected) Coronavirus NL63 (PCR) Not Detected (NotDetected) Human Metapneumovir PCR Not Detected (NotDetected) Influenza Type A (PCR) Not Detected (NotDetected) Influenza Type B (PCR) Not Detected (NotDetected) M. pneumoniae (PCR) Not Detected (NotDetected) Parainfluenza 1 (PCR) Not Detected (NotDetected) Parainfluenza 2 (PCR) Not Detected (NotDetected) Parainfluenza 3 (PCR) Not Detected (NotDetected) Parainfluenza 4 (PCR) Not Detected (NotDetected) RSV (PCR) Not Detected (NotDetected) Entero/Rhino (PCR) Not Detected (NotDetected) 1101/15/25 01/15/25 Range/Units 16:22 17:04 17:23 WBC (4.8-10.8) K/ul RBC (4.70-6.10) M/uL Hgb (14.0-18.0) g/dl POC Hgb (14.0-18.0) g/dl Hct (42.0-52.0) % POC Hct (42-52) % MCV (80.0-100.0) fL MCH (25.0-34.0) pg MCHC (32.0-36.0) g/dL RDW Std Deviation (36.4-46.3) fL RDW Coeff of Pao (11.5-14.5) % Plt Count (130-400) K/uL MPV (9.4-12.4) fL Immature Gran % (Auto) % Neut % (Auto) % Lymph % (Auto) % Cowley % (Auto) % Eos % (Auto) % Baso % (Auto) % Neut # (Auto) (1.40-6.50) K/uL Lymph # (Auto) (1.20-3.40) K/uL Cowley # (Auto) (0.11-0.59) K/uL Eos # (Auto) (0.00-0.50) K/uL Baso # (Auto) (0.00-0.20) K/uL Immature Gran # (Auto) (0.01-0.20) K/uL VBG pH (7.36-7.41) VBG pCO2 (38-50) mmHg VBG pO2 mmHg VBG HCO3 mmol/L VBG O2 Saturation % VBG Base Excess mEq/L POC Sodium (135-144) mmol/L Sodium 135 L (136-145) mmol/L POC Potassium (3.3-5.0) mmol/L Potassium 4.0 (3.5-5.1) mmol/L POC Chloride (101-112) mmol/L Chloride 98 (98-107) mmol/L Carbon Dioxide 18 L (21-32) mmol/L POC Total CO2 (24-31) mmol/L Anion Gap 19 H (3-11) POC Anion Gap (16-25) mmol/L POC BUN (7-18) mg/dl BUN 36 H (6-23) mg/dl Creatinine 1.58 H (0.6-1.4) mg/dl POC Creatinine (0.6-1.3) mg/dl Est Cr Clr Drug Dosing 59.8 ml/min eGFR 57.42 BUN/Creatinine Ratio 22.8 H (10-20) Glucose 400 H* (70-99(Fasting)) mg/dl POC Glucose 418 H* 352 H* (70-99) mg/dl POC Glucose (other) (70-99) mg/dl Estimat Average Glucose mg/dl Hemoglobin A1c (4.5-5.6) % Calcium 8.8 (8.6-10.3) mg/dl POC Ioniz Calcium Emma (1.12-1.32) mmol/l Phosphorus (2.5-4.9) mg/dl Magnesium (1.7-2.4) mg/dl Total Bilirubin (0.2-1.0) mg/dl AST (13-39) U/L ALT (7-52) U/L Alkaline Phosphatase (34-104) U/L Total Protein (6.0-8.3) gm/dl Albumin (3.4-5.0) gm/dl Globulin (2.5-4.0) gm/dl Albumin/Globulin Ratio (0.9-2) Procalcitonin (0-0.5) ng/ml Adenovirus (PCR) (NotDetected) B. pertussis DNA (PCR) (NotDetected) B.parapertussis DNA PCR (NotDetected) C. pneumoniae DNA (PCR) (NotDetected) Coronavirus OC43 (PCR) (NotDetected) Coronavirus HKU1 (PCR) (NotDetected) Coronavirus 229E (PCR) (NotDetected) SARS-CoV-2 (PCR) (NotDetected) Coronavirus NL63 (PCR) (NotDetected) Human Metapneumovir PCR (NotDetected) Influenza Type A (PCR) (NotDetected) Influenza Type B (PCR) (NotDetected) M. pneumoniae (PCR) (NotDetected) Parainfluenza 1 (PCR) (NotDetected) Parainfluenza 2 (PCR) (NotDetected) Parainfluenza 3 (PCR) (NotDetected) Parainfluenza 4 (PCR) (NotDetected) RSV (PCR) (NotDetected) Entero/Rhino (PCR) (NotDetected) 01/15/25 Range/Units 18:33 WBC (4.8-10.8) K/ul RBC (4.70-6.10) M/uL Hgb (14.0-18.0) g/dl POC Hgb (14.0-18.0) g/dl Hct (42.0-52.0) % POC Hct (42-52) % MCV (80.0-100.0) fL MCH (25.0-34.0) pg MCHC (32.0-36.0) g/dL RDW Std Deviation (36.4-46.3) fL RDW Coeff of Pao (11.5-14.5) % Plt Count (130-400) K/uL MPV (9.4-12.4) fL Immature Gran % (Auto) % Neut % (Auto) % Lymph % (Auto) % Cowley % (Auto) % Eos % (Auto) % Baso % (Auto) % Neut # (Auto) (1.40-6.50) K/uL Lymph # (Auto) (1.20-3.40) K/uL Cowley # (Auto) (0.11-0.59) K/uL Eos # (Auto) (0.00-0.50) K/uL Baso # (Auto) (0.00-0.20) K/uL Immature Gran # (Auto) (0.01-0.20) K/uL VBG pH (7.36-7.41) VBG pCO2 (38-50) mmHg VBG pO2 mmHg VBG HCO3 mmol/L VBG O2 Saturation % VBG Base Excess mEq/L POC Sodium (135-144) mmol/L Sodium (136-145) mmol/L POC Potassium (3.3-5.0) mmol/L Potassium (3.5-5.1) mmol/L POC Chloride (101-112) mmol/L Chloride (98-107) mmol/L Carbon Dioxide (21-32) mmol/L POC Total CO2 (24-31) mmol/L Anion Gap (3-11) POC Anion Gap (16-25) mmol/L POC BUN (7-18) mg/dl BUN (6-23) mg/dl Creatinine (0.6-1.4) mg/dl POC Creatinine (0.6-1.3) mg/dl Est Cr Clr Drug Dosing ml/min eGFR BUN/Creatinine Ratio (10-20) Glucose (70-99(Fasting)) mg/dl POC Glucose 276 H (70-99) mg/dl POC Glucose (other) (70-99) mg/dl Estimat Average Glucose mg/dl Hemoglobin A1c (4.5-5.6) % Calcium (8.6-10.3) mg/dl POC Ioniz Calcium Emma (1.12-1.32) mmol/l Phosphorus (2.5-4.9) mg/dl Magnesium (1.7-2.4) mg/dl Total Bilirubin (0.2-1.0) mg/dl AST (13-39) U/L ALT (7-52) U/L Alkaline Phosphatase (34-104) U/L Total Protein (6.0-8.3) gm/dl Albumin (3.4-5.0) gm/dl Globulin (2.5-4.0) gm/dl Albumin/Globulin Ratio (0.9-2) Procalcitonin (0-0.5) ng/ml Adenovirus (PCR) (NotDetected) B. pertussis DNA (PCR) (NotDetected) B.parapertussis DNA PCR (NotDetected) C. pneumoniae DNA (PCR) (NotDetected) Coronavirus OC43 (PCR) (NotDetected) Coronavirus HKU1 (PCR) (NotDetected) Coronavirus 229E (PCR) (NotDetected) SARS-CoV-2 (PCR) (NotDetected) Coronavirus NL63 (PCR) (NotDetected) Human Metapneumovir PCR (NotDetected) Influenza Type A (PCR) (NotDetected) Influenza Type B (PCR) (NotDetected) M. pneumoniae (PCR) (NotDetected) Parainfluenza 1 (PCR) (NotDetected) Parainfluenza 2 (PCR) (NotDetected) Parainfluenza 3 (PCR) (NotDetected) Parainfluenza 4 (PCR) (NotDetected) RSV (PCR) (NotDetected) Entero/Rhino (PCR) (NotDetected) Administered Medications Insulin Human Regular 250 (units/ Sodium Chloride) 250 mls @ 7.6 mls/hr IV .Q24H [facility]; Protocol Stop: 02/14/25 15:14 Last Titration: 01/16/25 01:30 Dose: 0 units/hr, 0 mls/hr Documented By: LIBERTY Co-signed By: MLS Titration: 01/16/25 00:36 Dose: 7.6 units/hr, 7.6 mls/hr Documented By: LIBERTY Co-signed By: MLS Titration: 01/15/25 23:40 Dose: 7.6 units/hr, 7.6 mls/hr Documented By: LIBERTY Co-signed By: CLC Titration: 01/15/25 22:28 Dose: 7.6 units/hr, 7.6 mls/hr Documented By: LIBERTY Co-signed By: rmt Titration: 01/15/25 21:28 Dose: 5.4 units/hr, 5.4 mls/hr Documented By: LIBERTY Co-signed By: MLS Titration: 01/15/25 20:41 Dose: 5.4 units/hr, 5.4 mls/hr Documented By: LIBERTY Co-signed By: MLS Titration: 01/15/25 19:34 Dose: 6.8 units/hr, 6.8 mls/hr Documented By: NAW Co-signed By: LESLIE Titration: 01/15/25 18:37 Dose: 8.5 units/hr, 8.5 mls/hr Documented By: ASW Co-signed By: MWJef Titration: 01/15/25 17:33 Dose: 8.5 units/hr, 8.5 mls/hr Documented By: ASW Co-signed By: JOVANA Admin: 01/15/25 16:28 Dose: 8.5 units/hr, 8.5 mls/hr Documented By: MWS Co-signed By: ASW Titration: 01/15/25 16:28 Dose: Infused Documented By: MWJef Co-signed By: ASW Admin: 01/15/25 15:31 Dose: 7.1 units/hr, 7.1 mls/hr Documented By: MWJef Co-signed By: ITA Potassium Chloride 40 meq/ (Sodium Chloride) 1,020 mls @ 150 mls/hr IV .Q6H48M KETAN Stop: 01/18/25 16:14 Last Admin: 01/15/25 18:31 Dose: 150 mls/hr Documented By: JOVANA Insulin Aspart (Insulin Aspart Per Unit Charge) 0 units SC ACHS KETAN Stop: 02/14/25 16:29 Last Admin: 01/15/25 21:28 Dose: Not Given Documented By: Admin: 01/15/25 16:30 Dose: Not Given Documented By: JOVANA Co-signed By: QGV Discontinued Medications Droperidol (Droperidol 5 Mg/2 Ml Vial) 1.25 mg IV ONE STA Stop: 01/15/25 14:43 Last Admin: 01/15/25 14:51 Dose: 1.25 mg Documented By: STEPHANIE Parenteral Electrolytes (Plasma-Lyte A Ph 7.4) 2,000 mls @ 999 mls/hr IV .Q2H1M ONE Stop: 01/15/25 16:42 Last Infusion: 01/15/25 16:39 Dose: Infused Documented By: Admin: 01/15/25 14:49 Dose: 999 mls/hr Documented By: STEPHANIE Potassium Chloride (K Lawrence / Wtr) 10 meq in 100 mls @ 100 mls/hr IV Q1H [facility] Stop: 01/15/25 18:14 Last Infusion: 01/15/25 18:38 Dose: Infused Documented By: Admin: 01/15/25 17:06 Dose: 100 mls/hr Documented By: Infusion: 01/15/25 17:03 Dose: Infused Documented By: Admin: 01/15/25 16:03 Dose: 100 mls/hr Documented By: Infusion: 01/15/25 16:03 Dose: Infused Documented By: Admin: 01/15/25 15:14 Dose: 100 mls/hr Documented By: JOVANA Ceftriaxone Sodium (Rocephin) 2,000 mg in 50 mls @ 100 mls/hr IV NOW STA Stop: 01/15/25 16:32 Last Infusion: 01/15/25 18:38 Dose: Infused Documented By: Admin: 01/15/25 18:07 Dose: 100 mls/hr Documented By: JOVANA Parenteral Electrolytes (Plasma-Lyte A Ph 7.4) 1,000 mls @ 999 mls/hr IV .Q1H1M ONE Stop: 01/15/25 18:18 Last Infusion: 01/15/25 18:38 Dose: Infused Documented By: Admin: 01/15/25 17:27 Dose: 999 mls/hr Documented By: JOVANA Insulin Human Regular (Novolin-R Bolus From Bag) 7 units IV ONE ONE Stop: 01/15/25 15:31 Last Admin: 01/15/25 15:32 Dose: 7 units Documented By: JOVANA Co-signed By: ITA Insulin Pump (Dc Home Insulin Pump) 1 each N/A NOW STA Stop: 01/15/25 14:43 Last Admin: 01/15/25 15:14 Dose: 1 each Documented By: JOVANA Ketorolac Tromethamine (Ketorolac Tromethamine 15 Mg/Ml Vial) 15 mg IV NOW STA Stop: 01/15/25 14:43 Last Admin: 01/15/25 14:51 Dose: 15 mg Documented By: STEPHANIE Miscellaneous (Stat Iv Infusion Titration Per Protocol) 1 each N/A NOW STA Stop: 01/15/25 15:13 Last Admin: 01/15/25 15:32 Dose: Not Given Documented By: JOVANA Potassium Chloride (Potassium Chloride Crtab 20 Meq Tabcr) 40 meq PO NOW STA Stop: 01/15/25 15:13 Last Admin: 01/15/25 15:21 Dose: 40 meq Documented By: JOVANA Imaging Data Radiologist's Impression: Chest X-Ray 01/15/25 14:42 SINGLE VIEW CHEST CLINICAL HISTORY: Diabetic ketoacidosis FINDINGS: An AP, portable, upright chest radiograph is compared to study dated 06/10/2024. The cardiomediastinal silhouette is unremarkable. The lungs and pleural spaces are clear. No pneumothorax is seen. The bony thorax is grossly intact. IMPRESSION: No active disease in the chest. ACT 112: Negative or not required by law. Electronically signed by: Arron Null M.D. 01/15/2025 3:07 PM Discharge Plan Visit Data Chief Complaint: Hyperglycemia Stated Complaint: DKA ED Provider: Reagan Israel Discharge Problem: DKA (diabetic ketoacidosis), Pseudohyponatremia, High anion gap metabolic acidosis, Acute dehydration Patient Disposition: Admitted As Inpatient Condition: Serious Discharge Instructions Interventions: ED Discharge Assessment Last Done: 01/15/25 20:23
[2025-01-15] MEDS: DROPERIDOL 5 MG/2 ML VIAL IV STA (14:51)
[2025-01-15] MEDS: KETOROLAC TROMETHAMINE 15 MG/ML VIAL IV STA (14:51)
[2025-01-15 15:07] LABS: Base Excess VBG -13.6 mEq/L; HCO3 VBG 12 mmol/L; Oxygen Saturation VBG 84.2 %; PCO2 VBG 25 mmHg (38-50); PO2 VBG 53 mmHg; pH VBG 7.27 (7.36-7.41)
--- NOTE | 2025-01-15 15:08 | XRay Report ---
SINGLE VIEW CHEST CLINICAL HISTORY: Diabetic ketoacidosis FINDINGS: An AP, portable, upright chest radiograph is compared to study dated 06/10/2024. The cardiom ediastinal silhouette is unremarkable. The lungs and pleural spaces are clear. No pneumothorax is see n. The bony thorax is grossly intact. IMPRESSION: No active disease in the chest. ACT 112: Negative or not required by law. Electronically signed by: Arron Null M.D. 01/15/2025 3:07 PM
[2025-01-15 15:10] LABS: Hematocrit (blood only) 41.4 % (42.0-52.0); Hemoglobin 15.2 g/dl (14.0-18.0); Immature Granulocytes # (auto) 0.09 K/uL (0.01-0.20); Immature Granulocytes % (auto) 0.6 %; Mean Corpuscular Hemoglobin 30.8 pg (25.0-34.0); Mean Corpuscular Volume 83.8 fL (80.0-100.0); Platelet Count 303 K/uL (130-400); RDW Standard Deviation 35.9 fL (36.4-46.3); Red Blood Count 4.94 M/uL (4.70-6.10); White Blood Count 15.56 K/ul (4.8-10.8)
[2025-01-15] MEDS: DC HOME INSULIN PUMP STA (15:14)
[2025-01-15] MEDS: POTASSIUM CHLORIDE / WTR 10 MEQ/100 ML PLCT IV SCH (15:14)
[2025-01-15 15:19] LABS: Hemoglobin A1C 9.2 % (4.5-5.6)
[2025-01-15] MEDS: POTASSIUM CHLORIDE CRTAB 20 MEQ TABCR PO STA (15:21)
[2025-01-15 15:31] LABS: Alanine Aminotransferase 20.0 U/L (7-52); Albumin Globulin Ratio 1.5 (0.9-2); Albumin Level 4.9 gm/dl (3.4-5.0); Alkaline Phosphatase 121.0 U/L (34-104); Anion Gap 29.0 (3-11); Bilirubin,Total 1.8 mg/dl (0.2-1.0); Blood Urea Nitrogen 36.0 mg/dl (6-23); Calcium 10.5 mg/dl (8.6-10.3); Carbon Dioxide 13.0 mmol/L (21-32); Chloride 91.0 mmol/L (98-107); Creatinine Clr Calc Pharmacy 54.7 ml/min; Globulin 3.2 gm/dl (2.5-4.0); Glucose 526.0 mg/dl (70-99(Fasting)); Magnesium 2.1 mg/dl (1.7-2.4); Potassium 4.0 mmol/L (3.5-5.1); Sodium 133.0 mmol/L (136-145); Total Protein 8.1 gm/dl (6.0-8.3)
[2025-01-15] MEDS: INSULIN REGULAR 250 UNITS in SODIUM CHLORIDE 0.9% 247.5 ML IV SCH (15:31)
[2025-01-15] MEDS: NovoLIN-R BOLUS FROM BAG IV ONE (15:32)
[2025-01-15] MEDS: STAT IV Infusion **Titration per Protocol STA (15:32)
[2025-01-15 16:06] LABS: Chlamydia pneumoniae PCR Not Detected (NotDetected); Coronavirus 229E PCR Not Detected (NotDetected); Coronavirus CoV-2 (COVID19)PCR Not Detected (NotDetected); Coronavirus HKU1 PCR Not Detected (NotDetected); Coronavirus NL63 PCR Not Detected (NotDetected); Coronavirus OC43PCR Not Detected (NotDetected); Human Metapneumovirus PCR Not Detected (NotDetected); Parainfluenza Virus 1 PCR Not Detected (NotDetected); Parainfluenza Virus 2 PCR Not Detected (NotDetected); Parainfluenza Virus 3 PCR Not Detected (NotDetected); Parainfluenza Virus 4 PCR Not Detected (NotDetected); Respiratory Syncytial VirusPCR Not Detected (NotDetected); Rhinovirus/Enterovirus PCR Not Detected (NotDetected)
[2025-01-15] MEDS: INSULIN ASPART PER UNIT CHARGE SC SCH (16:30)
[2025-01-15] MEDS: PLASMA-LYTE A 1,000 ML IV ONE (17:27)
--- NOTE | 2025-01-15 17:31 | History & Physical Report ---
Date of Service January 15, 2025 Assessment & Plan (1) DKA (diabetic ketoacidosis): (2) Type 1 diabetes mellitus, uncontrolled: (3) Leukocytosis: (4) Proliferative diabetic retinopathy associated with type 1 diabetes mellitus: (5) Diabetic nephropathy associated with type 1 diabetes mellitus: (6) Hypertension: Plan 39yo male with long-standing T1DM on insulin pump, diabetic retinopathy, and HTN presenting with DKA. #DKA - -copious isotonic fluids given in the ER followed by generous maintenance fluids -s/p initiation of regular IV insulin drip in the ER -humalog pump has been disconnected -compliance with insulin regimen is not the trigger; instead, it sounds like technical difficulties with the pump insertion site is the culprit -although he has leukocytosis on CBC there is no source of infection by way of labs, imaging, or examination -serial labs q4h -cont NS with KCL at 150ml/hr -allow clear liquid diet; abd pain, nausea, emesis have stopped -can advance to regular T1DM diet in am tomorrow -coding educator consult -pharmacy glycemic team consult -replace any electrolyte deficiencies #uncontrolled T1DM with retinopathy - -a1c noted - 9.2% -DM education consult -follows with Varghese Méndezgeraldrashaun at the [facility]; next appt is in February -will contact him tomorrow and see if that appt can be moved up -will defer to the breastfeeding educator, Mr Schultz, etc if the issue with the insertion site/insertion needle from his pump is such an issue that he needs a new device (patient and his explain that scar tissue on the abdominal wall is causing the hook-up to be difficult) #HTN - -hold all anti-hypertensives at admission and follow BPs #DVT proph - -defer on chemical means unless he stays beyond tomorrow #leukocytosis - -repeat CBC am pt's updated at bedside during the admission process History of Present Illness Chief Complaint: hyperglycemia, abdominal pain, arthralgias Primary Care Provider: Andrea Ray, DO 39yo male with history of long-standing type 1 diabetes, diabetic retinopathy, and HTN who presents with complaints of hyperglycemia, abdominal pain, nausea, vomiting, arthralgias of his shoulders and neck, and little PO intake today. Patient reports that last night he changed his insulin pump infusion site and went to bed. However, when he awoke this am, he noted that his continuous glucose monitoring system was showing marked hyperglycemia with values >400. He suspected that the infusion site was the culprit and therefore exchanged the pump infusion site out again. He continued to have high glucose levels all morning. He swapped out the infusion site hook-up a 3rd time later today without success. With ongoing hyperglycemia he tried bolusing himself with his insulin pump without any improvement in his glucose levels. About this time he started to feel poorly with abdominal pain, nausea, emesis, and arthralgias. He took a brief nap hoping to feel better but continued to feel lousy after he woke up. He ultimately came to the ER this afternoon to be evaluated. Denies any recent illness. Denies any changes in his overall health (although has had laser therapy and injections for diabetic retinopathy in both eyes over the last few months by Dr Rosales). Denies any recently prescribed steroids. Allergies Allergy/AdvReac Type Severity Reaction Status Date / Time latex Allergy Mild RASH Verified 01/15/25 17:25 Home Medications Medication Instructions Recorded Confirmed Type subcutaneous insulin pump (MiniMed 10/15/20 01/15/25 History 770G Insulin Pump) glucagon 3 mg/actuation nasal spray 3 mg intranasal ONCE PRN 12/29/21 01/15/25 Rx hypoglycemia #2 ea albuterol sulfate 90 mcg/actuation 2 inh inhalation QID PRN shortness 11/22/22 01/15/25 Rx aerosol inhaler of breath or wheezing #20.1 grams insulin syringe-needle U-100 1 mL #100 ea 08/22/23 01/15/25 Rx 31 gauge x 5/16" (BD Insulin Syringe Ultra-Fine) betamethasone dipropionate 0.05 % 1 applic topical DAILY #60 mL 02/20/24 01/15/25 Rx lotion ketoconazole 2 % shampoo 1 applic topical 2XWK 03/12/24 01/15/25 History acetone (urine) test (Ketone Urine 04/02/24 01/15/25 History Test strips) cholecalciferol (vitamin D3) 10 10 mcg PO QAM 06/10/24 01/15/25 History mcg (400 unit) capsule (Vitamin D3) diclofenac sodium 1 % topical gel 4 g EXT BID PRN joint pain 06/10/24 01/15/25 History (Voltaren Arthritis Pain) ibuprofen 200 mg tablet 400 mg PO Q6H PRN Pain 06/10/24 01/15/25 History multivitamin 1 tab PO QAM 06/10/24 01/15/25 History Humalog U-100 Insulin 100 unit/mL See Rx Instructions subcut DAILY 06/13/24 01/15/25 Rx subcutaneous solution (insulin 90 days #70 mL lispro) sildenafil 50 mg tablet (Viagra) 50 mg PO DAILY PRN sexual activity 10/16/24 01/15/25 Rx #30 tabs amlodipine 10 mg-benazepril 40 mg 1 cap PO QAM 10/17/24 01/15/25 History capsule blood sugar diagnostic (OneTouch #500 ea 11/21/24 01/15/25 Rx Verio test strips) hydrochlorothiazide 25 mg tablet 25 mg PO QAM 01/15/25 01/15/25 History metoprolol succinate 25 mg 25 mg PO QPM 01/15/25 01/15/25 History tablet,extended release 24 hr spironolactone 25 mg tablet 12.5 mg PO QAM 01/15/25 01/15/25 History 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 Vitamin D insufficiency Diabetic nephropathy associated with type 1 diabetes mellitus Encounter for vasectomy counseling Avulsion, finger tip (Acute) Shingles (Acute) Type 1 diabetes mellitus, uncontrolled Positive for macroalbuminuria Nephropathy Type 1 diabetes mellitus with retinopathy Hypertension Uncontrolled hypertension Chronic kidney disease, stage I Medical History (Updated 01/16/25 @ 01:55 by Reagan Israel DO) Productive cough Hyperglycemia due to type 1 diabetes mellitus Hypertension Polyarthralgia Surgical History (Updated 01/15/25 @ 20:49 by Gualberto Turner MD) Hx of laser photocoagulation of retina Dr Roger vargas/marzena eyes Family History (Updated 01/15/25 @ 20:50 by Gualberto Turner MD) Aunt Breast cancer Grandmother (Maternal) No problems noted. Grandmother Breast cancer Pancreatic cancer Dementia Skin cancer Grandfather Myocardial infarction Sister Thyroid disease Denies family history of Ovarian cancer Prostate cancer Colorectal cancer Social History Smoking Status: Former smoker Tobacco Type: Cigarettes Age Started Using Tobacco: 19; Age Quit Using Tobacco: 30; packs per day: 2; Second Hand Exposure: No; Do You Dip or Chew Tobacco: No; Tobacco Cessation Education Requested by Patient: No Hx Alcohol Use: Yes Alcohol type: wine Alcohol Intake Frequency: 2-4 x/Month Hx Substance Use: Yes (medical marijuana) Last Used Substance: Days (ago) Last Used Substance Other:: 2 days ago Substance Use Type Other:: medical marijuana card Preferred Language: [place] Communication Ability: Effective Visual Impairment: No Limitations Hearing Ability: Normal Cigarette Book Maker Required: No Beliefs That Will Affect Care: None marital status: Current Living Situation: Spouse current occupational status: employed current occupation: [employer] How many Children do You have: 3 Other Information That Helps Us Care for You: No Feels Safe at Home: Yes Safety Concerns: Feels Safe At This Time Childhood Exposure to Second-Hand Smoke: No Diet: other and regular Diet Comment: no red meat or pork Dental Care, Regularly: Yes Physical Activity Frequency: 5-6 Times per Week Seatbelt Use: always Sunscreen Use: Yes Assistive Devices: None Assistive Devices Comment: insulin pump and glucose monitor Review of Systems Review of Systems: gen - no fevers or chills; no recent weight changes; had been eating well until today eyes - recent laser surgery & injections for b/l eyes (diabetic retinopathy) HENT - no URI symptoms CV - no chest pain pulm - no dyspnea, no cough GI - mild abd pain/nausea/emesis - improved from earlier today; no diarrhea - no LUTS endo - up until today BSGs have been <200 musculo - arthralgias neck/shoulders - improving skin - no rash neuro - no headache Physical Exam Physical Exam: gen - NAD, nontoxic, awake/alert eyes - PERRL HENT - MM dry, no lesions, no thrush neck - no JVD, no lymph nodes, no goiter heart - tachy, s1 s2, no murmur lungs - CTA b/l abd - soft NT ND BS+ ext - no edema, pulses 2+ b/l skin - numerous tattoos, no rashes neuro - strength 5/5 x 4 exts; DTRs 2+ b/l upper / lower exts psych - a/o x 3 Results & Data Results & Data Vital Signs (Past 12 Hours) Vital Signs Temp Pulse Resp BP Pulse Ox 01/15/25 16:04 120/60 01/15/25 16:03 90 16 01/15/25 16:00 91 H 18 01/15/25 15:30 95 H 18 01/15/25 15:10 111 H 01/15/25 15:00 102 H 20 100 01/15/25 14:40 36.0 C L 105 H 20 168/94 H 98 Laboratory Results Laboratory Results - last 24 hr 01/15/25 01/15/25 01/15/25 14:41 14:52 15:00 WBC 15.56 H RBC 4.94 Hgb 15.2 POC Hgb 15.0 Hct 41.4 L POC Hct 44 MCV 83.8 MCH 30.8 MCHC 36.7 H RDW Std Deviation 35.9 L RDW Coeff of Pao 11.9 Plt Count 303 MPV 10.1 Immature Gran % (Auto) 0.6 Neut % (Auto) 88.5 Lymph % (Auto) 6.4 Taney % (Auto) 3.5 Eos % (Auto) 0.0 Baso % (Auto) 1.0 Neut # (Auto) 13.78 H Lymph # (Auto) 0.99 L Taney # (Auto) 0.55 Eos # (Auto) 0.00 Baso # (Auto) 0.15 Immature Gran # (Auto) 0.09 VBG pH 7.27 L VBG pCO2 25 L VBG pO2 53 VBG HCO3 12 VBG O2 Saturation 84.2 VBG Base Excess -13.6 POC Sodium 133 L Sodium 133 L POC Potassium 3.9 Potassium 4.0 POC Chloride 98 L Chloride 91 L Carbon Dioxide 13 L POC Total CO2 14 L Anion Gap 29 H POC Anion Gap 26.0 H POC BUN 32 H BUN 36 H Creatinine 1.73 H POC Creatinine 1.6 H Est Cr Clr Drug Dosing 54.7 eGFR 51.50 BUN/Creatinine Ratio 20.8 H Glucose 526 H* POC Glucose 467 H* POC Glucose (other) 519 H* Estimat Average Glucose 217 Hemoglobin A1c 9.2 H Calcium 10.5 H POC Ioniz Calcium Emma 1.11 L Phosphorus 5.9 H Magnesium 2.1 Total Bilirubin 1.8 H AST 17 ALT 20 Alkaline Phosphatase 121 H Total Protein 8.1 Albumin 4.9 Globulin 3.2 Albumin/Globulin Ratio 1.5 Procalcitonin 0.94 H Urine Color Urine Appearance Urine pH Ur Specific [place] Urine Protein Urine Glucose (UA) Urine Ketones Urine Blood Urine Nitrite Urine Bilirubin Urine Urobilinogen Ur Leukocyte Esterase Urine WBC (Auto) Urine RBC (Auto) U Hyaline Cast (Auto) U Epithel Cells (Auto) Urine Bacteria (Auto) Urine Comment Adenovirus (PCR) Not Detected B. pertussis DNA (PCR) Not Detected B.parapertussis DNA PCR Not Detected C. pneumoniae DNA (PCR) Not Detected Coronavirus OC43 (PCR) Not Detected Coronavirus HKU1 (PCR) Not Detected Coronavirus 229E (PCR) Not Detected SARS-CoV-2 (PCR) Not Detected Coronavirus NL63 (PCR) Not Detected Human Metapneumovir PCR Not Detected Influenza Type A (PCR) Not Detected Influenza Type B (PCR) Not Detected M. pneumoniae (PCR) Not Detected Parainfluenza 1 (PCR) Not Detected Parainfluenza 2 (PCR) Not Detected Parainfluenza 3 (PCR) Not Detected Parainfluenza 4 (PCR) Not Detected RSV (PCR) Not Detected Entero/Rhino (PCR) Not Detected 01/15/25 01/15/25 01/15/25 16:22 17:04 17:23 WBC RBC Hgb POC Hgb Hct POC Hct MCV MCH MCHC RDW Std Deviation RDW Coeff of Pao Plt Count MPV Immature Gran % (Auto) Neut % (Auto) Lymph % (Auto) Taney % (Auto) Eos % (Auto) Baso % (Auto) Neut # (Auto) Lymph # (Auto) Taney # (Auto) Eos # (Auto) Baso # (Auto) Immature Gran # (Auto) VBG pH VBG pCO2 VBG pO2 VBG HCO3 VBG O2 Saturation VBG Base Excess POC Sodium Sodium 135 L POC Potassium Potassium 4.0 POC Chloride Chloride 98 Carbon Dioxide 18 L POC Total CO2 Anion Gap 19 H POC Anion Gap POC BUN BUN 36 H Creatinine 1.58 H POC Creatinine Est Cr Clr Drug Dosing 59.8 eGFR 57.42 BUN/Creatinine Ratio 22.8 H Glucose 400 H* POC Glucose 418 H* 352 H* POC Glucose (other) Estimat Average Glucose Hemoglobin A1c Calcium 8.8 POC Ioniz Calcium Emma Phosphorus Magnesium Total Bilirubin AST ALT Alkaline Phosphatase Total Protein Albumin Globulin Albumin/Globulin Ratio Procalcitonin Urine Color Urine Appearance Urine pH Ur Specific [place] Urine Protein Urine Glucose (UA) Urine Ketones Urine Blood Urine Nitrite Urine Bilirubin Urine Urobilinogen Ur Leukocyte Esterase Urine WBC (Auto) Urine RBC (Auto) U Hyaline Cast (Auto) U Epithel Cells (Auto) Urine Bacteria (Auto) Urine Comment Adenovirus (PCR) B. pertussis DNA (PCR) B.parapertussis DNA PCR C. pneumoniae DNA (PCR) Coronavirus OC43 (PCR) Coronavirus HKU1 (PCR) Coronavirus 229E (PCR) SARS-CoV-2 (PCR) Coronavirus NL63 (PCR) Human Metapneumovir PCR Influenza Type A (PCR) Influenza Type B (PCR) M. pneumoniae (PCR) Parainfluenza 1 (PCR) Parainfluenza 2 (PCR) Parainfluenza 3 (PCR) Parainfluenza 4 (PCR) RSV (PCR) Entero/Rhino (PCR) 01/15/25 01/15/25 01/15/25 18:33 18:54 19:26 WBC RBC Hgb POC Hgb Hct POC Hct MCV MCH MCHC RDW Std Deviation RDW Coeff of Pao Plt Count MPV Immature Gran % (Auto) Neut % (Auto) Lymph % (Auto) Taney % (Auto) Eos % (Auto) Baso % (Auto) Neut # (Auto) Lymph # (Auto) Taney # (Auto) Eos # (Auto) Baso # (Auto) Immature Gran # (Auto) VBG pH VBG pCO2 VBG pO2 VBG HCO3 VBG O2 Saturation VBG Base Excess POC Sodium Sodium POC Potassium Potassium POC Chloride Chloride Carbon Dioxide POC Total CO2 Anion Gap POC Anion Gap POC BUN BUN Creatinine POC Creatinine Est Cr Clr Drug Dosing eGFR BUN/Creatinine Ratio Glucose POC Glucose 276 H 220 H POC Glucose (other) Estimat Average Glucose Hemoglobin A1c Calcium POC Ioniz Calcium Emma Phosphorus Magnesium Total Bilirubin AST ALT Alkaline Phosphatase Total Protein Albumin Globulin Albumin/Globulin Ratio Procalcitonin Urine Color Yellow Urine Appearance Clear Urine pH 5.0 Ur Specific [place] 1.024 Urine Protein Trace H Urine Glucose (UA) 3+ H Urine Ketones 3+ H Urine Blood Negative Urine Nitrite Negative Urine Bilirubin Negative Urine Urobilinogen Negative Ur Leukocyte Esterase Negative Urine WBC (Auto) 0-5 Urine RBC (Auto) 0-2 U Hyaline Cast (Auto) 3-5 H U Epithel Cells (Auto) 0-2 Urine Bacteria (Auto) None Seen Urine Comment Adenovirus (PCR) B. pertussis DNA (PCR) B.parapertussis DNA PCR C. pneumoniae DNA (PCR) Coronavirus OC43 (PCR) Coronavirus HKU1 (PCR) Coronavirus 229E (PCR) SARS-CoV-2 (PCR) Coronavirus NL63 (PCR) Human Metapneumovir PCR Influenza Type A (PCR) Influenza Type B (PCR) M. pneumoniae (PCR) Parainfluenza 1 (PCR) Parainfluenza 2 (PCR) Parainfluenza 3 (PCR) Parainfluenza 4 (PCR) RSV (PCR) Entero/Rhino (PCR) 01/15/25 20:37 WBC RBC Hgb POC Hgb Hct POC Hct MCV MCH MCHC RDW Std Deviation RDW Coeff of Pao Plt Count MPV Immature Gran % (Auto) Neut % (Auto) Lymph % (Auto) Taney % (Auto) Eos % (Auto) Baso % (Auto) Neut # (Auto) Lymph # (Auto) Taney # (Auto) Eos # (Auto) Baso # (Auto) Immature Gran # (Auto) VBG pH VBG pCO2 VBG pO2 VBG HCO3 VBG O2 Saturation VBG Base Excess POC Sodium Sodium POC Potassium Potassium POC Chloride Chloride Carbon Dioxide POC Total CO2 Anion Gap POC Anion Gap POC BUN BUN Creatinine POC Creatinine Est Cr Clr Drug Dosing eGFR BUN/Creatinine Ratio Glucose POC Glucose 170 H POC Glucose (other) Estimat Average Glucose Hemoglobin A1c Calcium POC Ioniz Calcium Emma Phosphorus Magnesium Total Bilirubin AST ALT Alkaline Phosphatase Total Protein Albumin Globulin Albumin/Globulin Ratio Procalcitonin Urine Color Urine Appearance Urine pH Ur Specific [place] Urine Protein Urine Glucose (UA) Urine Ketones Urine Blood Urine Nitrite Urine Bilirubin Urine Urobilinogen Ur Leukocyte Esterase Urine WBC (Auto) Urine RBC (Auto) U Hyaline Cast (Auto) U Epithel Cells (Auto) Urine Bacteria (Auto) Urine Comment Adenovirus (PCR) B. pertussis DNA (PCR) B.parapertussis DNA PCR C. pneumoniae DNA (PCR) Coronavirus OC43 (PCR) Coronavirus HKU1 (PCR) Coronavirus 229E (PCR) SARS-CoV-2 (PCR) Coronavirus NL63 (PCR) Human Metapneumovir PCR Influenza Type A (PCR) Influenza Type B (PCR) M. pneumoniae (PCR) Parainfluenza 1 (PCR) Parainfluenza 2 (PCR) Parainfluenza 3 (PCR) Parainfluenza 4 (PCR) RSV (PCR) Entero/Rhino (PCR) Diagnostic Findings Chest X-Ray 01/15/25 14:42 SINGLE VIEW CHEST CLINICAL HISTORY: Diabetic ketoacidosis FINDINGS: An AP, portable, upright chest radiograph is compared to study dated 06/10/2024. The cardiomediastinal silhouette is unremarkable. The lungs and pleural spaces are clear. No pneumothorax is seen. The bony thorax is grossly intact. IMPRESSION: No active disease in the chest. ACT 112: Negative or not required by law. Electronically signed by: Arron Null M.D. 01/15/2025 3:07 PM Code Status & VTE Plan Code Status full code PG Care Time/CCT Total # of Minutes Spent Total Time Spent with Patient: Total time spent is greater than 50% in coordination of care (as documented) at patient's floor/unit and/or counseling patient: Coding Level of Care Code 46249 INT INP/OBS CARE 2/55MIN Diagnoses DKA (diabetic ketoacidosis) E11.10 Uncontrolled type 1 diabetes mellitus with hyperglycemia E10.65 Glycemic state: with hyperglycemia Leukocytosis D72.829 Proliferative diabetic retinopathy associated with type 1 diabetes mellitus E10.3599 Diabetic nephropathy associated with type 1 diabetes mellitus E10.21 Hypertension I10 (2) Type 1 diabetes mellitus, uncontrolled Glycemic state: with hyperglycemia Qualified Code(s): E10.65 - Type 1 diabetes mellitus with hyperglycemia
[2025-01-15 17:44] LABS: Anion Gap 19.0 (3-11); Blood Urea Nitrogen 36.0 mg/dl (6-23); Calcium 8.8 mg/dl (8.6-10.3); Carbon Dioxide 18.0 mmol/L (21-32); Chloride 98.0 mmol/L (98-107); Creatinine Clr Calc Pharmacy 59.8 ml/min; Glucose 400.0 mg/dl (70-99(Fasting)); Potassium 4.0 mmol/L (3.5-5.1); Sodium 135.0 mmol/L (136-145)
[2025-01-15] MEDS: cefTRIAXone SODIUM 2,000 MG/50 ML BAG IV STA (18:07)
[2025-01-15] MEDS: POTASSIUM CHLORIDE 40 MEQ in SODIUM CHLORIDE 0.9% 1,000 ML IV SCH (18:31)
[2025-01-15 19:08] LABS: Appearance Urine Clear (Clear); Bacteria Urine Automated None Seen (None Seen); Epithelial Cell Urine Auto 0-2 /hpf (0-2); Glucose Urine UA 3+ (Negative); RBC Urine Automated 0-2 /hpf (0-2); WBC Urine Automated 0-5 /hpf (0-5)
[2025-01-15] MEDS ORDERED: MELATONIN 3 MG TAB PO PRN (20:42)
[2025-01-15] MEDS ORDERED: ACETAMINOPHEN 325 MG TAB PO PRN (20:42)
[2025-01-15] MEDS ORDERED: PHARMACY GLYCEMIC MGMT CONSULT PRN (20:42)
[2025-01-15] MEDS ORDERED: DKA GOAL RANGE 150-250 mg/dl ONE (20:42)
[2025-01-15] MEDS ORDERED: ONDANSETRON INJ 2 MG/ML 2 ML VIAL IV PRN (20:42)
[2025-01-15] MEDS ORDERED: ALBUTEROL HFA 8 GM INHALER INH PRN (20:42)
[2025-01-15] MEDS ORDERED: INSULIN ASPART PER UNIT CHARGE SC SCH (21:00)
[2025-01-15 21:45] LABS: Anion Gap 10.0 (3-11); Blood Urea Nitrogen 32.0 mg/dl (6-23); Calcium 8.8 mg/dl (8.6-10.3); Carbon Dioxide 24.0 mmol/L (21-32); Chloride 102.0 mmol/L (98-107); Creatinine Clr Calc Pharmacy 68.9 ml/min; Glucose 172.0 mg/dl (70-99(Fasting)); Magnesium 2.3 mg/dl (1.7-2.4); Potassium 3.8 mmol/L (3.5-5.1); Sodium 136.0 mmol/L (136-145)
[2025-01-16 01:19] LABS: Anion Gap 5.0 (3-11); Blood Urea Nitrogen 31.0 mg/dl (6-23); Calcium 8.2 mg/dl (8.6-10.3); Carbon Dioxide 25.0 mmol/L (21-32); Chloride 106.0 mmol/L (98-107); Creatinine Clr Calc Pharmacy 71.9 ml/min; Glucose 189.0 mg/dl (70-99(Fasting)); Magnesium 2.2 mg/dl (1.7-2.4); Potassium 3.9 mmol/L (3.5-5.1); Sodium 136.0 mmol/L (136-145)
[2025-01-16] MEDS: DEXTROSE 50% 50 ML SYRINGE IV PRN (01:51)
[2025-01-16] MEDS: POTASSIUM CHLORIDE 40 MEQ in D5W AND NSS 1,000 ML IV SCH (04:50)
[2025-01-16 05:52] LABS: Anion Gap 3.0 (3-11); Blood Urea Nitrogen 30.0 mg/dl (6-23); Calcium 7.5 mg/dl (8.6-10.3); Carbon Dioxide 24.0 mmol/L (21-32); Chloride 110.0 mmol/L (98-107); Creatinine Clr Calc Pharmacy 75.9 ml/min; Glucose 292.0 mg/dl (70-99(Fasting)); Magnesium 1.9 mg/dl (1.7-2.4); Potassium 5.8 mmol/L (3.5-5.1); Sodium 137.0 mmol/L (136-145)
[2025-01-16] MEDS: DEXTROSE 5% 1,000 ML IV SCH (06:18)
[2025-01-16 06:28] LABS: Hematocrit (blood only) 33.7 % (42.0-52.0); Hemoglobin 12.5 g/dl (14.0-18.0); Immature Granulocytes # (auto) 0.04 K/uL (0.01-0.20); Immature Granulocytes % (auto) 0.3 %; Mean Corpuscular Hemoglobin 31.3 pg (25.0-34.0); Mean Corpuscular Volume 84.3 fL (80.0-100.0); Platelet Count 227 K/uL (130-400); RDW Standard Deviation 36.2 fL (36.4-46.3); Red Blood Count 4.00 M/uL (4.70-6.10); White Blood Count 14.27 K/ul (4.8-10.8)
[2025-01-16] MEDS: CALCIUM GLUCONATE 1,000 MG/60 ML BAG IV STA (06:31)
[2025-01-16] MEDS: INSULIN HUMAN REGULAR PER UNIT 10 UNITS in SYRINGE 9.9 ML IV STA (06:59)
[2025-01-16] MEDS: DEXTROSE 50% 50 ML SYRINGE IV STA (06:59)
[2025-01-16] MEDS: LANTUS PER UNIT CHARGE SC ONE (08:57)
[2025-01-16] MEDS: INSULIN ASPART PER UNIT CHARGE SC SCH (08:57)
[2025-01-16] MEDS: POT PHOSPHATE MONOBASIC W/ SOD TAB PO SCH (08:58)
[2025-01-16 09:44] LABS: Anion Gap 5.0 (3-11); Blood Urea Nitrogen 28.0 mg/dl (6-23); Calcium 8.5 mg/dl (8.6-10.3); Carbon Dioxide 24.0 mmol/L (21-32); Chloride 107.0 mmol/L (98-107); Creatinine Clr Calc Pharmacy 81.5 ml/min; Glucose 281.0 mg/dl (70-99(Fasting)); Magnesium 2.0 mg/dl (1.7-2.4); Potassium 4.5 mmol/L (3.5-5.1); Sodium 136.0 mmol/L (136-145)
[2025-01-16] MEDS ORDERED: SODIUM PHOSPHATE 3 MMOL/1 ML INFUSION IV STA (09:46)
[2025-01-16] MEDS: SODIUM PHOSPHATE 24 MMOL in SODIUM CHLORIDE 0.9% 500 ML IV ONE (10:20)
[2025-01-16 11:22] VITALS: O2SAT 98
--- NOTE | 2025-01-16 12:58 | Pharmacy Report ---
Pharmacy Glycemic Short Note 2 - Date of Service January 16, 2025 - Glycemic Short BSG Results (Last 24 hours): 01/15/25 01/15/25 01/15/25 14:41 14:52 15:00 Glucose 526 H* POC Glucose 467 H* POC Glucose (other) 519 H* 01/15/25 01/15/25 01/15/25 16:22 17:04 17:23 Glucose 400 H* POC Glucose 418 H* 352 H* POC Glucose (other) 01/15/25 01/15/25 01/15/25 18:33 19:26 20:37 Glucose POC Glucose 276 H 220 H 170 H POC Glucose (other) 01/15/25 01/15/25 01/15/25 21:04 21:27 22:26 Glucose 172 H POC Glucose 158 H 287 H POC Glucose (other) 01/15/25 01/16/25 01/16/25 23:31 00:29 00:44 Glucose 189 H POC Glucose 268 H 241 H POC Glucose (other) 01/16/25 01/16/25 01/16/25 01:28 01:48 02:07 Glucose POC Glucose 116 H 99 142 H POC Glucose (other) 01/16/25 01/16/25 01/16/25 02:22 02:41 03:12 Glucose POC Glucose 100 H 169 H 146 H POC Glucose (other) 01/16/25 01/16/25 01/16/25 03:38 03:56 04:14 Glucose POC Glucose 130 H 114 H 95 POC Glucose (other) 01/16/25 01/16/25 01/16/25 04:26 04:40 04:57 Glucose POC Glucose 105 H 109 H 120 H POC Glucose (other) 01/16/25 01/16/25 01/16/25 05:11 05:31 07:15 Glucose 292 H POC Glucose 164 H 261 H POC Glucose (other) 01/16/25 01/16/25 08:53 11:48 Glucose 281 H POC Glucose 230 H POC Glucose (other) OUTPATIENT ANTIDIABETIC REGIMEN: * Humalog pump (setting per most recent diabetes note 10/17/24) * 27.4 units basal/day * Sensitivity factory of 55 in AM, 45 in PM * Carb ratio: 14 HbA1c: 9.2% (01/15/25) ASSESSMENT: * NK is a 39 year old male admitted with DKA secondary to malfunction of insulin pump (difficulties with insertion site) * Insulin gtt and IV fluids initiated in ED last evening * Potassium of 5.8 mmol/L this morning - insulin gtt discontinued, IV bolus +D50W administered * DKA is now resolved, anion gap of 3 and carbon dioxide of 24 mmol/L on AM labs * Will continue SC basal/bolus until ready to transition back to pump PLAN FOR INPATIENT GLYCEMIC CONTROL: * Hold Humalog pump * Basal insulin * Lantus 25 units SC x 1 * Reassess in AM * Bolus insulin * NovoLog per scale ACHS or Q6hrs while NPO * Goal Range: Low 120 mg/dL - High 160 mg/dL * Correction Factor: 45 mg/dL/unit * Nutritional / Prandial insulin per carb ratio of 1 unit per 15 grams CHO consumed
[2025-01-16 15:10] VITALS: PULSE 88; RESP 20; TEMP 98.2
[2025-01-16 17:03] VITALS: BP 117/65
--- NOTE | 2025-01-16 17:14 | Discharge Summary ---
Discharge Summary Date of Service January 16, 2025 Principal Dx & Hospital Course #1 = Principal Diagnosis (1) DKA (diabetic ketoacidosis): (2) Type 1 diabetes mellitus, uncontrolled: (3) Leukocytosis: (4) Proliferative diabetic retinopathy associated with type 1 diabetes mellitus: (5) Diabetic nephropathy associated with type 1 diabetes mellitus: (6) Hypertension: Plan 39yo male with long-standing T1DM on insulin pump, diabetic retinopathy, and HTN presenting with DKA. #DKA - -copious isotonic fluids given in the ER followed by generous maintenance fluids -s/p initiation of regular IV insulin drip in the ER -humalog pump has been disconnected -compliance with insulin regimen is not the trigger; instead, it sounds like technical difficulties with the pump insertion site is the culprit -although he has leukocytosis on CBC there is no source of infection by way of labs, imaging, or examination -serial labs q4h -cont NS with KCL at 150ml/hr -allow clear liquid diet; abd pain, nausea, emesis have stopped -can advance to regular T1DM diet in am tomorrow -prosthodontist/educator consult -pharmacy glycemic team consult -replace any electrolyte deficiencies #uncontrolled T1DM with retinopathy - -a1c noted - 9.2% -DM education consult -follows with Varghese Méndezgeraldrashaun at the [facility]; next appt is in February -will contact him tomorrow and see if that appt can be moved up -will defer to the clinical trial educator, Mr Schultz, etc if the issue with the insertion site/insertion needle from his pump is such an issue that he needs a new device (patient and his explain that scar tissue on the abdominal wall is causing the hook-up to be difficult) #HTN - -hold all anti-hypertensives at admission and follow BPs #DVT proph - -defer on chemical means unless he stays beyond tomorrow #leukocytosis - -repeat CBC am pt's updated at bedside during the admission process Admission HPI Per Admitting Provider 39yo male with history of long-standing type 1 diabetes, diabetic retinopathy, and HTN who presents with complaints of hyperglycemia, abdominal pain, nausea, vomiting, arthralgias of his shoulders and neck, and little PO intake today. Patient reports that last night he changed his insulin pump infusion site and went to bed. However, when he awoke this am, he noted that his continuous glucose monitoring system was showing marked hyperglycemia with values >400. He suspected that the infusion site was the culprit and therefore exchanged the pump infusion site out again. He continued to have high glucose levels all morning. He swapped out the infusion site hook-up a 3rd time later today without success. With ongoing hyperglycemia he tried bolusing himself with his insulin pump without any improvement in his glucose levels. About this time he started to feel poorly with abdominal pain, nausea, emesis, and arthralgias. He took a brief nap hoping to feel better but continued to feel lousy after he woke up. He ultimately came to the ER this afternoon to be evaluated. Denies any recent illness. Denies any changes in his overall health (although has had laser therapy and injections for diabetic retinopathy in both eyes over the last few months by Dr Rosales). Denies any recently prescribed steroids. Discharge Exam gen - NAD, nontoxic, awake/alert eyes - PERRL HENT - MM dry, no lesions, no thrush neck - no JVD, no lymph nodes, no goiter heart - tachy, s1 s2, no murmur lungs - CTA b/l abd - soft NT ND BS+ ext - no edema, pulses 2+ b/l skin - numerous tattoos, no rashes neuro - strength 5/5 x 4 exts; DTRs 2+ b/l upper / lower exts psych - a/o x 3 Discharge Plan Discharge Items Patient Disposition: Home - Self-Care Reason For Visit: DKA Discharge Diagnosis: 1. diabetic ketoacidosis 2. type 1 diabetes 3. high blood pressure 4. low phosphorus level Activity: As commented below Activity Comment: gradually increase activity over the next 2-3 days Non-emergency contact: Primary Care Provider and Specialist Call non-emergency contact if: you have any medication questions and your symptoms worsen Follow-up/Referrals: Varghese Schultz PA-C [Physician [facility]] - 02/18/25 (you are currently scheduled for February 18, but Mr Schultz's office will be calling you to move this appointment up ) Andrea Ray DO [Primary Care Provider] - 01/23/25 3:40 pm (Scheduled with KAROL Valdes) Diet: Carb Count or DM1 Addtl Attending Provider Instructions: Mr Tolentino, You were hospitalized due to diabetic ketoacidosis (DKA). This resolved with IV insulin and IV fluids. We did not find any infections that could have triggered the DKA despite the mildly elevated white blood cell count seen at time of admission. It is thought that your insulin pump insertion site at the skin was not optimal and you likely went numerous hours without basal insulin. You were seen by the prosthodontist/educator to help troubleshoot some of the issues that may have led to the DKA. Recommendations - 1. you received lantus 25 units the morning of 01/16/25. Thus, please leave your basal insulin OFF until tomorrow morning, 01/17/25. Continue your insulin pump in the meantime for bolus dosing to cover meals & highs. Tomorrow morning please resume your basal settings as previous. 2. resume your metoprolol succinate TONIGHT as usual. 3. tomorrow morning, 01/17, please resume your amlodipine-benazepril as usual. 4. check your blood pressures twice daily at least for the next 5-7 days. -if your systolic blood pressures ("top" number) are consistently less than 130 please HOLD the hydrochlorothiazide and spironolactone. -if your systolics do trend to greater than 130 over the next few days then I would resume the hydrochlorothiazide FIRST. please have a formal office visit either with Dr Ray or Dr Lara for a blood pressure check within the next week to guide your therapies for the blood pressure. Follow-up - see separate section Return to [facility] if - -you have fevers over 100 degrees -you have worsening shortness of breath -you have recurrent abdominal pains -you have nausea/vomiting -you have chest pains -you have any concerns about your blood sugars or about developing recurrent DKA -any other concerns It was our pleasure caring for you! Pending Studies at Discharge: No Stand-Alone Forms: My [facility] Leaky, Work/School Release, Smoking Cessation Medications and DC Order Prescriptions: Continued albuterol sulfate 90 mcg/actuation HFA aerosol inhaler 2 inh inhalation QID PRN (Reason: shortness of breath or wheezing) Qty: 20.1 0RF insulin lispro [Humalog U-100 Insulin] 100 unit/mL solution See Rx Instructions SQ DAILY 90 Days Qty: 70 3RF Rx Instructions: infuse up to 75 units daily via insulin pump subcut daily; sildenafil [Viagra] 50 mg tablet 50 mg PO DAILY PRN (Reason: sexual activity) Qty: 30 0RF Rx Instructions: administer 30 minutes to 4 hours before activity (DME) OneTouch Verio test strips Strip See Rx Instructions .Route Qty: 500 3RF Rx Instructions: As directed, test 4 times daily (DME) MiniMed 770G Insulin Pump Misc See Rx Instructions .Route Rx Instructions: As directed (DME) insulin syringe-needle U-100 [BD Insulin Syringe Ultra-Fine] 1 mL 31 gauge x 5/16 syringe See Rx Instructions .Route Qty: 100 0RF Rx Instructions: for use as a backup in case of pump failure glucagon 3 mg/actuation spray,non-aerosol 3 mg intranasal ONCE PRN (Reason: hypoglycemia ) Qty: 2 1RF amlodipine-benazepril 10-40 mg capsule 1 cap PO QAM betamethasone dipropionate 0.05 % lotion 1 applic topical DAILY Qty: 60 1RF Rx Instructions: Apply to areas of the scalp daily x 2 weeks. Then use as needed for flaring. ketoconazole 2 % shampoo 1 applic topical [id number] Rx Instructions: 1 applic topically to scalp twice weekly. Let sit for 3-5 minutes prior to rinsing.; multivitamin Tablet 1 tab PO QAM ibuprofen 200 mg Tablet 400 mg PO Q6H PRN (Reason: Pain) cholecalciferol (vitamin D3) [Vitamin D3] 10 mcg (400 unit) Capsule 10 mcg PO QAM diclofenac sodium [Voltaren Arthritis Pain] 1 % gel 4 g EXT BID PRN (Reason: joint pain) Rx Instructions: purchase [id number] metoprolol succinate 25 mg tablet extended release 24 hr 25 mg PO QPM (DME) Ketone Urine Test Strip See Rx Instructions .Route Qty: 50 2RF Rx Instructions: As directed Held spironolactone 25 mg tablet 12.5 mg PO QAM Hold Instructions: hold for now hydrochlorothiazide 25 mg tablet 25 mg PO QAM Hold Instructions: hold for now Discharge Orders: Discharge Order (Routine); Ordered 01/16/25 Ordered By: Gualberto Day/Other Patient Handouts: Diabetic Ketoacidosis Admission Data Admit Date/Time: 01/15/25 18:41 Attending Provider: Gualberto Turner Admit Provider: Gualberto Turner Primary Care Provider: Andrea Ray Other Providers: Gualberto Turner Hospital Stay Data Consultations 01/15/25 17:21 ED Decision to Admit Stat Pending Results Patient Have Any Pending Studies at Discharge: No Discharge Instructions Given to Patient (Per Discharging Provider) Armin Coley were hospitalized due to diabetic ketoacidosis (DKA). This resolved with IV insulin and IV fluids. We did not find any infections that could have triggered the DKA despite the mildly elevated white blood cell count seen at time of admission. It is thought that your insulin pump insertion site at the skin was not optimal and you likely went numerous hours without basal insulin. You were seen by the prosthodontist/educator to help troubleshoot some of the issues that may have led to the DKA. Recommendations - 1. you received lantus 25 units the morning of 01/16/25. Thus, please leave your basal insulin OFF until tomorrow morning, 01/17/25. Continue your insulin pump in the meantime for bolus dosing to cover meals & highs. Tomorrow morning please resume your basal settings as previous. 2. resume your metoprolol succinate TONIGHT as usual. 3. tomorrow morning, 01/17, please resume your amlodipine-benazepril as usual. 4. check your blood pressures twice daily at least for the next 5-7 days. -if your systolic blood pressures ("top" number) are consistently less than 130 please HOLD the hydrochlorothiazide and spironolactone. -if your systolics do trend to greater than 130 over the next few days then I would resume the hydrochlorothiazide FIRST. please have a formal office visit either with Dr Ray or Dr Lara for a blood pressure check within the next week to guide your therapies for the blood pressure. Follow-up - see separate section Return to [facility] if - -you have fevers over 100 degrees -you have worsening shortness of breath -you have recurrent abdominal pains -you have nausea/vomiting -you have chest pains -you have any concerns about your blood sugars or about developing recurrent DKA -any other concerns It was our pleasure caring for you! Coding Diagnoses DKA (diabetic ketoacidosis) E11.10 Uncontrolled type 1 diabetes mellitus with hyperglycemia E10.65 Glycemic state: with hyperglycemia Leukocytosis D72.829 Proliferative diabetic retinopathy associated with type 1 diabetes mellitus E10.3599 Diabetic nephropathy associated with type 1 diabetes mellitus E10.21 Hypertension I10
[2025-01-17] MEDS ORDERED: INSULIN ASPART PER UNIT CHARGE SC SCH
== END 2025-01-16 17:49 | disposition home or self-care (01) | DRG 639 ==
LOC: ED 14:36 → 4W 18:41